=== PATIENT | female | born 1960 | race Caucasian/White ===

== ENCOUNTER 2020-12-11 08:06 | Outpatient (REF) | payer MEDICARE, MEDICAID, SELFPAY ==
[2020-12-11 09:31] LABS: Alanine Aminotransferase 35 U/L (0-31); Albumin Level 4.4 g/dL (3.5-5.0); Alkaline Phosphatase 104 U/L (39-117); Anion Gap 13 (12-20); Aspartate Amino Transferase 25 U/L (5-31); Bilirubin Total 0.5 mg/dL (0.0-1.0); Blood Urea Nitrogen 16 mg/dL (9-16); Calcium 9.2 mg/dL (8.4-10.2); Carbon Dioxide 28 mmol/L (22-29); Chloride 107 mmol/L (96-108); Estimated Glomerular Filt Rate > 60; Glucose Random 107 mg/dL (60-115); Potassium 4.9 mmol/L (3.3-5.1); Sodium 143 mmol/L (135-145); Total Protein 7.6 g/dL (6.5-8.0)
== END 2020-12-11 08:07 | disposition home or self-care (01) ==
LOC: HO.LAB 08:06
PROVIDERS: PCP Pediatrics; Visit Provider Student in an Organized Health Care Education/Training Program
DX: M19.049 Primary osteoarthritis, unspecified hand (principal)
CPT/HCPCS: 36415; 80053

== ENCOUNTER 2021-06-24 10:26 | Outpatient (REF) | payer MEDICARE, MEDICAID, SELFPAY ==
--- NOTE | ~2021-06-24 | XR_ITS ---
EXAMINATION: XR BILATERAL HAND CLINICAL INFORMATION: Primary osteoarthritis. COMPARISON: Bilateral hand 07/24/2017. TECHNIQUE: 3 views each hand. FINDINGS: Left hand: There is severe loss of PIP and DIP joint space with periarticular spurring. There are subchondral cystic changes proximal end mid phalanx 4th digit. The MCP joint space is maintained normal. No visible acute fracture or dislocation seen. The soft tissues are normal. Right hand: There is mild loss of PIP and DIP joint space both digits with periarticular spurring DIP joint 4th and 5th digits. There is a small loose body likely old injury, DIP joint 4th digit. Mild soft tissue swelling seen PIP joint 2nd through 4th digits. Normal. The carpometacarpal and radioulnar carpometacarpal joint space is maintained. XR/XR hand RT min 3V IMPRESSION: Severe degenerative changes PIP joints all digits and and minimal loss of the DIP joint space 2nd through 4th digit. No acute fracture, loose bodies or joint effusion seen. Degenerative osteoarthritic changes PIP and DIP joints all digits slightly worse along the PIP joint 5th digit. No visible acute fracture, dislocation or subluxation seen.
--- NOTE | ~2021-06-24 | XR_ITS ---
EXAMINATION: XR BILATERAL HAND CLINICAL INFORMATION: Primary osteoarthritis. COMPARISON: Bilateral hand 07/24/2017. TECHNIQUE: 3 views each hand. FINDINGS: Left hand: There is severe loss of PIP and DIP joint space with periarticular spurring. There are subchondral cystic changes proximal end mid phalanx 4th digit. The MCP joint space is maintained normal. No visible acute fracture or dislocation seen. The soft tissues are normal. Right hand: There is mild loss of PIP and DIP joint space both digits with periarticular spurring DIP joint 4th and 5th digits. There is a small loose body likely old injury, DIP joint 4th digit. Mild soft tissue swelling seen PIP joint 2nd through 4th digits. Normal. The carpometacarpal and radioulnar carpometacarpal joint space is maintained. XR/XR hand LT min 3V IMPRESSION: Severe degenerative changes PIP joints all digits and and minimal loss of the DIP joint space 2nd through 4th digit. No acute fracture, loose bodies or joint effusion seen. Degenerative osteoarthritic changes PIP and DIP joints all digits slightly worse along the PIP joint 5th digit. No visible acute fracture, dislocation or subluxation seen.
[2021-06-24 12:28] LABS: Alanine Aminotransferase 39 U/L (0-31); Albumin Level 4.3 g/dL (3.5-5.0); Alkaline Phosphatase 106 U/L (39-117); Anion Gap 10 (12-20); Aspartate Amino Transferase 25 U/L (5-31); Bilirubin Total 0.4 mg/dL (0.0-1.0); Blood Urea Nitrogen 14 mg/dL (9-16); Calcium 9.8 mg/dL (8.4-10.2); Carbon Dioxide 31 mmol/L (22-29); Chloride 106 mmol/L (96-108); Estimated Glomerular Filt Rate > 60; Glucose Random 96 mg/dL (60-115); Potassium 4.4 mmol/L (3.3-5.1); Sodium 143 mmol/L (135-145); Total Protein 7.8 g/dL (6.5-8.0)
== END 2021-06-24 10:27 | disposition home or self-care (01) ==
LOC: HO.LAB 10:26
PROVIDERS: PCP Internal Medicine; Visit Provider Nurse Practitioner Family
DX: M19.041 Primary osteoarthritis, right hand (principal); M19.042 Primary osteoarthritis, left hand
CPT/HCPCS: 36415; 73130; 80053; 99212

== ENCOUNTER → 2022-07-14 11:43 | Outpatient (BNVA) | payer MEDICARE, MEDICAID, SELFPAY | PROVIDERS: PCP Internal Medicine; Visit Provider Nurse Practitioner Family | DX: M19.049 Primary osteoarthritis, unspecified hand (principal); M54.16 Radiculopathy, lumbar region | CPT/HCPCS: 36415; 80053; 99212 ==

== ENCOUNTER 2022-07-14 12:54 | Outpatient (REF) | payer MEDICARE, MEDICAID, SELFPAY ==
[2022-07-14 14:07] LABS: Alanine Aminotransferase 45 U/L (0-31); Albumin Level 4.3 g/dL (3.5-5.0); Alkaline Phosphatase 113 U/L (39-117); Anion Gap 14 (12-20); Aspartate Amino Transferase 32 U/L (5-31); Bilirubin Total 0.4 mg/dL (0.0-1.0); Blood Urea Nitrogen 14 mg/dL (9-16); Calcium 9.6 mg/dL (8.4-10.2); Carbon Dioxide 28 mmol/L (22-29); Chloride 105 mmol/L (96-108); Estimated Glomerular Filt Rate > 60; Glucose Random 89 mg/dL (60-115); Potassium 3.8 mmol/L (3.3-5.1); Sodium 143 mmol/L (135-145); Total Protein 7.4 g/dL (6.5-8.0)
== END 2022-07-14 12:55 | disposition home or self-care (01) ==
LOC: HO.10HDL 12:54
PROVIDERS: Visit Provider Nurse Practitioner Family
DX: Z13.89 Encounter for screening for other disorder (principal)
CPT/HCPCS: 36415; 80053

== ENCOUNTER 2023-01-19 06:28 | Emergency (ER) | payer OTHER, SELFPAY ==
--- NOTE | ~2023-01-19 | CT_ITS ---
EXAMINATION: CT HEAD WITHOUT CONTRAST CLINICAL INFORMATION: Facial numbness COMPARISON: None available. TECHNIQUE: Contiguous axial imaging was performed from the skull base to vertex without intravenous administration of contrast. This CT examination was performed using dose optimization techniques as appropriate, variously including the following: *Automated exposure control *Adjustment of mA and/or kV according to patient size (this includes techniques or standardized protocols for targeted exams where dose is matched to indication/reason for exam; i.e. extremities or head) *Use of iterative reconstruction technique DLP: 552 mGy-cm FINDINGS: There is no evidence of an extra-axial collection. There is no evidence of intra or extra-axial hemorrhage. The ventricles and extra-axial CSF spaces are appropriate. Ross-white matter differentiation is normal. No mass, mass effect or infarct. Review of bone windows is normal. Paranasal sinuses, mastoid air cells and middle ears are clear. CT/CT head/brain wo IV con IMPRESSION: No acute intracranial pathology.
[2023-01-19 06:36] VITALS: BP 168/93; PULSE 87; RESP 18; TEMP 36.7; O2SAT 96; BMI 33.3
--- NOTE | 2023-01-19 07:20 | ED_ITS ---
HPI - General Adult General Chief complaint: General Medical Stated complaint: Facial numbness left side Time Seen by Provider: 01/19/23 06:36 Source: patient Mode of arrival: ambulatory Limitations: no limitations History of Present Illness HPI narrative: this is a 62-year-old female history of arthritis presenting to the emergency department with complaints left facial numbness for the past 5 days, patient rep orts this started suddenly, she reports she fell as acting like sensation to her left upper lip and then suddenly she felt like the left side of her face was numb particularly around her nose and lip region she tells me it feels like her mouth was numb to for dental procedure. No history of this in the past. No recent surgeries, vaccines, bug bites or insect bites, recent travel, trauma. Patient denies fevers, chills, chest pain, shortness of breath, visual disturbances, dizziness, headache, neck pain, nausea, vomiting, abdominal pain. Tells me she feels overall well. Related Data Home Medications Medication Instructions Recorded Confirmed ibuprofen 200 mg tablet (Advil) 200 mg PO Q6H PRN 07/14/22 07/14/22 Previous Rx's Medication Instructions Recorded acetaminophen 650 mg 650 mg PO Q8H PRN pain #90 tabs 12/21/20 tablet,extended release (Tylenol Arthritis Pain) aspirin 81 mg capsule 81 mg PO DAILY #30 caps 01/19/23 prednisone 20 mg tablet 60 mg PO DAILY 5 days #15 tabs 01/19/23 Allergies Allergy/AdvReac Type Severity Reaction Status Date / Time No Known Allergies Allergy Verified 01/19/23 06:46 [No Known Allergies*] Review of Systems Review of Systems: Constitutional : No Weight loss, No Fever, No Chills, No Fatigue, No Malaise ENT/Mouth : No sore throat, No Rhinorrhea Eyes: No Eye Pain, No Swelling, No Redness Cardiovascular : No Chest Pain, No SOB, No Dyspnea on Exertion, No Orthopnea, No Edema, No Palpitations Respiratory : No Cough, No Sputum, No Wheezing Gastrointestinal : No Nausea, No Vomiting, No Diarrhea, No Constipation, No abdominal Pain, No Hematochezia, No Melena Genitourinary : No Dysuria, No Urinary Frequency, No Hematuria, Musculoskeletal : No joint pain, No Myalgias, No Joint Swelling Skin : No Skin Lesions, No rash Neuro : No Weakness, + Numbness, No Dizziness, No Headache Psych : No Anxiety/Panic, No Depression All other systems reviewed and are negative Yes all other systems are reviewed and are negative [facility] Past Medical History Attestation statement: The following information was validated with the patient. Source: old records reviewed and nursing notes reviewed Medical History (Updated 01/19/23 @ 08:30 by MIGUELANGEL Aponte) Carpal tunnel syndrome Herniated disc, cervical Lumbar radiculopathy Osteoarthritis Surgical History Hx of tubal ligation Family History Family History Mother CAD (coronary artery disease) Father Brain cancer COPD (chronic obstructive pulmonary disease) Sister Brain cancer Brother Diabetes Social History Social History Household Members: Spouse Housing: Apartment Alcohol intake: never Patient Tobacco Use Status: Never used Tobacco Smoked in Last 30 Days: No Use of substances other than those prescribed or required for medical reasons: No Advance Directives: No Advance Directives Information Provided: Yes service: No Current occupational status: disabled Sexual orientation: Straight/Heterosexual Gender identity: Female Physical Exam ED Vital Signs: Vital Signs - 24 hr 01/19/23 06:36 01/19/23 07:44 Temperature 98.0 F 97.9 F Pulse Rate 87 75 Respiratory Rate 18 16 Blood Pressure 168/93 H 135/76 Pulse Oximetry 96 95 Oxygen Delivery Method Room Air Room Air BMI result Body Mass Index 33.3 vss Appearance: Alert.? Oriented X3.? No acute distress.? Head: Normocephalic, atraumatic, no step-offs or deformities Eyes: Pupils equal, round and reactive to light.? ENT: Pharynx normal.? Smile symmetric. Able to wrinkle forehead. Neck: Normal inspection.? Neck supple.? CVS: Normal heart rate and rhythm.? Pulses normal.? Respiratory: No respiratory distress.? Breath sounds normal.? Abdomen: Soft and nontender.? Skin: Skin warm and dry.? Normal skin color.? Normal skin turgor.? Extremities: No lower extremity edema.? No calf ttp. 5/5 strength to bilateral upper and lower extremities Back: No midline tenderness, no C-spine tenderness, full range of motion, no CVA tenderness bilaterally Neuro: Oriented X 3.? No motor deficit.? No sensory deficit. CN 2-12 intact . Normal cqiulp-eb-hgtg, udux-vl-rogf, steady tandem gait with normal coordinat ion. Normal hand continuous improvement coach equal bilateral. Negative Romberg and pronator drift. Normal speech. Scale NIH stroke scale 0 Course Reevaluation(s) Reevaluation #1: Patient's CBC unremarkable. Slightly elevated ESR . Chemistry unremarkable. CRP 0.[address] with no acute findings. Neuro remains nonfocal all. Symptom onset 5 days ago, at of stroke window. Discuss this case with my attending who recommends prednisone outpatient neurology follow-up nothing to be done about it in an inpatient setting. Patient feels well. Educated patient on diagnosis and treatment plan, answered all question, patient verbalizes understanding. At this time patient will be discharged home, advised to return with new or worsening symptoms. Educated on worrisome signs and symptoms and when to return. At this time I feel comfortable discharge home. Time: 08:55 Medical Decision Making Medical Decision Making [facility] Narrative: 0700 62-year-old female presents with left-sided facial numbness with past 5 days atraumatic. Physical exam benign. Negative NIH stroke scale. Concerns for possible impingement of facial nerve, trigeminal neuralgia versus lacunar stroke ( Patient not tPA candidate due to length of symptoms). history and physical exam not consistent with Guillain-Le Roy, [place] Calix syndrome, myasthenia gravis. No signs of posterior stroke. No signs of intracranial hemorrhage. will rule out electrolyte abnormalities Plan labs, inflammatory markers, tick panel, head CT Differential Diagnosis Differential Diagnoses: The differential diagnosis associated with the presentat ion includes Concerns for possible impingement of facial nerve, trigeminal neuralgia versus lacunar stroke ( Patient not tPA candidate due to length of symptoms). history and physical exam not consistent with Guillain-[place], [place] Calix syndrome, myasthenia gravis. No signs of posterior stroke. No signs of intracranial hemorrhage. will rule out electrolyte abnormalities Admission/Observation Consideration of admission/observation: Escalation of care including admission/observation considered possible Lab Data [facility] Lab Attestation statement: I reviewed the patient's lab results. 01/19/23 07:55 01/19/23 07:55 Labs: Lab Results 01/19/23 01/19/23 01/19/23 Range/Units 07:55 07:55 07:55 WBC 8.2 (4.8-10.8) X10*3/uL RBC 4.56 (4.20-5.50) X10*6/uL Hgb 13.5 (12.0-16.0) g/dl Hct 40.3 (37.0-47.0) % MCV 88.4 (80.0-98.0) fL MCH 29.6 (27.0-33.0) pg MCHC 33.5 (31.0-35.0) g/dl RDW 13.2 (11.0-16.0) % Plt Count 222 (160-400) X10*3/uL MPV 9.8 (9.4-12.3) fL Immature Gran % (Auto) 0.4 (0.0-0.4) % Neut % (Auto) 56.1 (45-73) % Lymph % (Auto) 32.8 (20-40) % [place] % (Auto) 8.5 (2-11) % Eos % (Auto) 2.0 (0-4) % Baso % (Auto) 0.2 (0-2) % Lymph # (Auto) 2.7 (1.2-4.9) X10*3/uL [place] # (Auto) 0.7 (0.1-1.2) X10*3/uL Eos # (Auto) 0.2 (0.0-0.4) X10*3/uL Baso # (Auto) 0.0 (0.0-0.2) X10*3/uL Abs Immat Gran (auto) 0.03 (0.00-0.03) X10*3/uL Absolute Neuts (auto) 4.6 (2.0-8.3) x10*3/uL Absolute Nucleated RBC 0.000 (0.0-0.012) X10*3/uL Nucleated RBC % (auto) 0.0 (0.0-0.2) /100WBC ESR 28 H (0-20) MM/HR Sodium 141 (135-145) mmol/L Potassium 3.6 (3.3-5.1) mmol/L Chloride 108 (96-108) mmol/L Carbon Dioxide 26 (22-29) mmol/L Anion Gap 11 L (12-20) BUN 12 (9-16) mg/dL Creatinine 0.72 (0.5-1.4) mg/dL Estim Creat Clear Calc 69.6 Estimated GFR > 60 Random Glucose 107 (60-115) mg/dL Calcium 9.0 D (8.4-10.2) mg/dL Magnesium 2.3 (1.6-2.6) mg/dL Total Bilirubin 0.5 (0.0-1.0) mg/dL AST 25 (5-31) U/L ALT 34 H (0-31) U/L Alkaline Phosphatase 81 (39-117) U/L C-Reactive Protein 0.92 H (< or = 0.50) mg/dL Total Protein 7.4 (6.5-8.0) g/dL Albumin 3.9 (3.5-5.0) g/dL Independent Interpretation I performed an independent interpretation of an: CT Scan Radiology Impression Discussion of test interpretation with radiology: I have reviewed the r adiologist's reading. Core Measures AMI core measures followed: Yes Measure exclusions: not indicated Discharge Plan Discharge Clinical Impression: Facial numbness Patient Disposition: Home, Self-Care Instructions: Paresthesia (ED) Additional Instructions: Take your medications as prescribed. If you were prescribed antibiotics to day, it is important that you take your medication to their entirety, do not skip any doses, do not finish them early. Follow-up with your primary care provider this week. Return to the emergency department with new or worsening symptoms. Such as fevers, chills, chest pain, shortness of breath, nausea, vomiting, dizziness, headache, vision changes, lethargy In case of emergency call 911 Follow up with your PCP you may need an MRI Prescriptions: New aspirin 81 mg capsule 81 mg PO DAILY Qty: 30 2RF prednisone 20 mg tablet 60 mg PO DAILY 5 Days Qty: 15 0RF No Action acetaminophen [Tylenol Arthritis Pain] 650 mg tablet extended release 650 mg PO Q8H PRN (Reason: pain) Qty: 90 5RF ibuprofen [Advil] 200 mg tablet 200 mg PO Q6H PRN Referrals: [facility] Neuro/Sleep [Provider Group] - 1 day Physician,Unknown J [Primary Care Provider] - 2 days Stand Alone Forms: Work/School Release
[2023-01-19 07:44] VITALS: BP 135/76; PULSE 75; RESP 16; TEMP 36.6; O2SAT 95
--- NOTE | 2023-01-19 07:45 | PC.NURSE ---
pt a&ox3. respirations even and unlabored. skin appropriate for ethnicity. pt reporting facial numbess that begins in the left sided nose that radiates into the left cheek. pt denies chest pain, n/v. pt normal sinus on tele.
[2023-01-19 08:01] LABS: MANUAL DIFF FLAG NO
[2023-01-19 08:03] LABS: Basophils Percent Auto 0.2 % (0-2); Eosinophils Absolute Auto 0.2 X10*3/uL (0.0-0.4); Hematocrit 40.3 % (37.0-47.0); Hemoglobin 13.5 g/dl (12.0-16.0); Imm Gran Abs Auto 0.03 X10*3/uL (0.00-0.03); Imm Gran Pct Auto 0.4 % (0.0-0.4); Lymphocytes Absolute Auto 2.7 X10*3/uL (1.2-4.9); Lymphocytes Percent Auto 32.8 % (20-40); Mean Corpuscular HGB Conc 33.5 g/dl (31.0-35.0); Mean Corpuscular Hemoglobin 29.6 pg (27.0-33.0); Mean Corpuscular Volume 88.4 fL (80.0-98.0); Mean Platelet Volume 9.8 fL (9.4-12.3); Monocytes Absolute Auto 0.7 X10*3/uL (0.1-1.2); Monocytes Percent Auto 8.5 % (2-11); Neutrophils Absolute Auto 4.6 x10*3/uL (2.0-8.3); Neutrophils Percent Auto 56.1 % (45-73); Platelet Count 222 X10*3/uL (160-400); Red Blood Count 4.56 X10*6/uL (4.20-5.50); Red Cell Distribution Width 13.2 % (11.0-16.0); White Blood Count 8.2 X10*3/uL (4.8-10.8)
[2023-01-19 08:18] LABS: Alanine Aminotransferase 34 U/L (0-31); Albumin Level 3.9 g/dL (3.5-5.0); Alkaline Phosphatase 81 U/L (39-117); Anion Gap 11 (12-20); Aspartate Amino Transferase 25 U/L (5-31); Bilirubin Total 0.5 mg/dL (0.0-1.0); Blood Urea Nitrogen 12 mg/dL (9-16); C Reactive Protein 0.92 mg/dL (< or = 0.50); Carbon Dioxide 26 mmol/L (22-29); Chloride 108 mmol/L (96-108); Creatinine Clr Calc Pharmacy 69.6; Estimated Glomerular Filt Rate > 60; Glucose Random 107 mg/dL (60-115); Magnesium 2.3 mg/dL (1.6-2.6); Potassium 3.6 mmol/L (3.3-5.1); Sodium 141 mmol/L (135-145); Total Protein 7.4 g/dL (6.5-8.0)
[2023-01-19 08:45] LABS: Erythrocyte Sedimentation Rate 28 MM/HR (0-20)
[2023-01-20 20:57] LABS: Lyme Abs Screen <0.90 index
[2023-01-22 00:18] LABS: A. Phagocytphilium DNA,RT-PCR NOT DETECTED (NOT DETECTED); Babesia Microti DNA, RT-PCR NOT DETECTED (NOT DETECTED); Borrelia Miyamotoi,DNA RT-PCR NOT DETECTED (NOT DETECTED); E.Chaffeensis DNA RT-PCR NOT DETECTED (NOT DETECTED); Lyme(Borrelia ssp)DNA RT-PCR NOT DETECTED (NOT DETECTED)
== END 2023-01-19 09:02 | disposition home or self-care (01) ==
PROVIDERS: Physician Assistant; Emergency Provider Emergency Medicine
DX: R20.0 Anesthesia of skin (principal); R51.9 Headache, unspecified; Z79.899 Other long term (current) drug therapy
CPT/HCPCS: 36415; 70450; 80053; 83735; 85025; 85652; 86140; 86617; 86618; 87798; 87801; 99284

== ENCOUNTER 2023-04-17 13:13 | Outpatient (AMB) | payer OTHER, SELFPAY ==
--- NOTE | 2023-04-17 13:18 | A.OFFPC_ITS ---
Vital Signs 04/17/23 13:21 Height 4 ft 9.5 in Weight 157 lb 8 oz BMI 33.5 BP 120/76 Blood Pressure Location Lt brachial Position Sitting Pulse 104 H Pulse Source Pulse Oximeter Pulse Oximetry (%) 97 Oxygen Delivery Method Room Air Intake Visit Reasons: New patient-discuss general health Intake Note: Patient is a new patient here to establish care for Complaint of numbness in face, Arthritis. Transferring care from [facility]. Medical records have not been requested and have not received. Was seen at [facility] for numbness of face recently. Entry Level Project Engineer Required: Yes Entry Level Project Engineer Language: Anatomy Professor Name: Vega ([id number]) Information Interpreted: non-clinical & clinical Sales Training Representative: Not Required per policy Accompanied by: Self / Same As Patient Allergies No Known Allergies [No Known Allergies*] Allergy (Verified 04/17/23 13:46) Medication List - Last Reconciled 04/17/23 by SHIRAZ Cary acetaminophen ER (Tylenol Arthritis Pain) 650 mg PO Q8H PRN aspirin 81 mg PO DAILY Tobacco use date assessed: 04/17/23 Fall risk assessment: No Falls in past year Last assessed Fall Risk: 04/17/23 Dental Screening Dental Screen Date: 04/17/23 Did you have a dental visit in the last 12 months?: No Did you have a dental problem in the last 6 months where you did not have access to dental care?: No Was dental information given to patient?: No HPI HPI Comments History of Present Illness Details 62-year-old Ethiopian-speaking female past medical history significant for osteoarthritis, lumbar radiculopathy and anxiety. Patient is a new patient who presents today to establish care. Review of the notes patient was seen in the emergency room in December for left-sided facial numbness, head CT unremarkable. Patient was discharged home with prednisone. Patient denies any acute concerns at this time. Previous patient: [facility]. [facility] Medical History Lumbar radiculopathy Osteoarthritis Herniated disc, cervical Carpal tunnel syndrome Surgical History Hx of tubal ligation Family History Mother CAD (coronary artery disease) Father Brain cancer COPD (chronic obstructive pulmonary disease) Sister Brain cancer Brother Diabetes Social History Household Members: Spouse Housing: Apartment Alcohol intake: never Patient Tobacco Use Status: Never used Tobacco e-Cigarette/Vaping Use: Never Used Second Hand Smoke Exposure: No service: No Current occupational status: disabled Sexual orientation: Straight/Heterosexual Gender identity: Female Cognitive needs: Yes (cane) Hearing needs: No Vision needs: Yes (glasses) Questionnaire PHQ-9 Over the last 2 weeks, how often have you been bothered by any of the following problems? 1. Little interest or pleasure in doing things: not at all 2. Feeling down, depressed, or hopeless: not at all 3. Trouble falling or staying asleep, or sleeping too much: not at all 4. Feeling tired or having little energy: not at all 5. Poor appetite or overeating: not at all 6. Feeling bad about yourself - or that you are a failure or have let yourself or your family down: not at all 7. Trouble concentrating on things, such as reading the newspaper or watching television: not at all 8. Moving or speaking so slowly that other people could have noticed. Or the opposite - being so fidgety or restless that you have been moving around a lot more than usual: not at all 9. Thoughts that you would be better off or of hurting yourself in some way: not at all Total score: 0 Depression Screening Interpretation: Negative Depression Screening Done: Yes 55183 - PHQ-9 Billing: Yes Source: Developed by Drs. Dell Paul, Joan Yeung, Rhys Hardy and colleagues, with an educational aileen from [employer]. Thrive Questionnaire Date Thrive assessed: 04/17/23 I am a: Patient What is your living situation today?: I have a steady place to live Within the past 12 months, did the food you bought not last and you didn't have the money to get more?: Never true Within the past 12 months, did you worry whether your food would run out before you got money to buy more?: Never true Do you have trouble paying for medicines?: No Do you have trouble getting transportation to medical appointments?: No Do you have trouble paying your heating and electricity bill?: No Do you have trouble taking care of your child, family member or friend?: No Do you have trouble with day-to-day activities such as bathing, preparing meals, shopping, managing finances, etc.?: No Are you currently unemployed and looking for a job?: No Are you interested in more education?: No Currently or been in a relationship where the following occur: no concerns reported AUDIT C Alcohol Use Questionnaire (AUDIT-C) 1. How often do you have a drink containing alcohol?: Never Total Score: 0 ROCCO-7 AMB Questionnaire ROCCO-7 Date ROCCO - 7 assessed: 04/17/23 Feeling nervous, anxious, or on edge: 1 = Several days Not being able to stop or control worryin = Not at all Worrying too much about different things: 0 = Not at all Trouble relaxin = Not at all Being so restless that it is hard to sit still: 0 = Not at all Becoming easily annoyed or irritable: 0 = Not at all Feeling afraid as if something awful might happen: 1 = Several days Total ROCCO-7 score (0-4 normal; 5-9 mild; 10-14 moderate; 15-21 severe): 2 Source: Developed by Drs. Dell Paul, Joan Yeung, Rhys Hardy and colleagues, with an educational aileen from [employer]. ROCCO-7 Assessment Billing ROCCO-7 Assessment Tool: ROCCO-7 Assessment 85165 Review of Systems Const Denies chills, Denies fatigue, Denies fever(s) and Denies poor appetite Eyes Denies no additional complaints ENT Reports Normal hearing present Card Denies chest pain, Denies syncope, Denies rapid heart rate and Denies dyspnea Resp Denies cough and Denies dyspnea GI Denies change in stool character, Denies constipation, Denies diarrhea, Denies nausea and Denies vomiting Denies urinary frequency, Denies dysuria and Denies urinary urgency Neuro Reports Normal hearing present, Denies confusion and Denies syncope Psych Denies confusion Endo Denies fatigue Physical exam (Primary Care) Vital Signs: Last Vital Signs Pulse 104 H 04/17/23 13:21 BP 120/76 04/17/23 13:21 Pulse Ox 97 04/17/23 13:21 Oxygen Delivery Method Room Air 04/17/23 13:21 BMI result Body Mass Index 33.5 Tobacco/Smoking Status: Tobacco use Status Tobacco use date assessed 04/17/23 04/17/23 13:35 Patient Tobacco Use Status Never used Tobacco 04/17/23 13:35 e-Cigarette/Vaping Use Never Used 04/17/23 13:35 PHQ-9: PHQ-9 Score PHQ-9: Total score 0 04/17/23 13:49 Depression Screening Interpretation: Negative Thrive Assessment: Date of Thrive Assessment Date Thrive assessed 04/17/23 04/17/23 13:35 Currently or been in a relationship where the following occur: no concerns reported Const General: No confusion Orientation/consciousness: No confusion HENMT Head: Yes normocephalic and Yes atraumatic Eyes Conjunctivae: conjunctivae normal Chest Chest palpation & inspection: normal inspection of the chest Resp Effort & Inspection: normal respiratory effort Auscultation: clear to auscultation bilaterally, no crackles, no rhonchi and no wheezes Cardio Rate: regular rate Rhythm: regular rhythm Heart sounds: S1 normal heart sound present and S2 normal heart sound present GI Inspection: Yes normal to inspection Neuro General: No confusion Cranial nerves: Yes Normal hearing present Extrem General: No edema Assessment and Plan Assessment & Plan (1) Anxiety: Code(s): F41.9 - Anxiety disorder, unspecified Plan: Offered referral to counseling, patient agreeable. (2) Lumbar radiculopathy: Code(s): M54.16 - Radiculopathy, lumbar region Plan: Can continue to take Tylenol as needed for pain. (3) Osteoarthritis, hand: Code(s): M19.049 - Primary osteoarthritis, unspecified hand Plan: Can continue to take Tylenol as needed for pain. Plan Follow-up in 3 months for physical exam. Orders: Orders Complete Blood Count Auto Diff Today Z13.0 - Encounter for screening for diseases of the blood and blood-forming organs and certain disorders involving the immune mechanism Comprehensive Rhine. Panel Fast Today Z13.1 - Encounter for screening for diabetes mellitus TSH reflex Free T4 Today Z13.29 - Encounter for screening for other suspected endocrine disorder Lipid Panel Today Z13.220 - Encounter for screening for lipoid disorders Referrals Counseling Referral F41.9 - Anxiety disorder, unspecified Coding Level of Care Code New Pt Level 3 (84453) Diagnoses Anxiety F41.9 Lumbar radiculopathy M54.16 Osteoarthritis, hand M19.049 Additional Codes ROCCO-7 Assessment Billing - ROCCO-7 Assessment Tool: ROCCO-7 Assessment 28488 ([id number])
[2023-04-17 13:21] VITALS: BP 120/76; PULSE 104; O2SAT 97; BMI 33.5
== END 2023-04-17 13:59 | disposition home or self-care (01) ==
PROVIDERS: Visit Provider Nurse Practitioner Family
DX: M19.049 Primary osteoarthritis, unspecified hand (principal); F41.9 Anxiety disorder, unspecified; M54.16 Radiculopathy, lumbar region
CPT/HCPCS: 99203

== ENCOUNTER 2023-04-18 06:58 | Outpatient (REF) | payer OTHER, SELFPAY ==
[2023-04-18 07:19] LABS: MANUAL DIFF FLAG NO
[2023-04-18 07:37] LABS: Basophils Percent Auto 0.3 % (0-2); Eosinophils Absolute Auto 0.2 X10*3/uL (0.0-0.4); Eosinophils Percent Auto 1.9 % (0-4); Hematocrit 42.3 % (37.0-47.0); Hemoglobin 13.7 g/dl (12.0-16.0); Imm Gran Abs Auto 0.04 X10*3/uL (0.00-0.03); Imm Gran Pct Auto 0.4 % (0.0-0.4); Lymphocytes Percent Auto 35.4 % (20-40); Mean Corpuscular HGB Conc 32.4 g/dl (31.0-35.0); Mean Corpuscular Hemoglobin 29.2 pg (27.0-33.0); Mean Corpuscular Volume 90.2 fL (80.0-98.0); Monocytes Absolute Auto 1.1 X10*3/uL (0.1-1.2); Monocytes Percent Auto 10.1 % (2-11); Neutrophils Absolute Auto 5.9 x10*3/uL (2.0-8.3); Neutrophils Percent Auto 51.9 % (45-73); Platelet Count 248 X10*3/uL (160-400); Red Blood Count 4.69 X10*6/uL (4.20-5.50); Red Cell Distribution Width 13.3 % (11.0-16.0); White Blood Count 11.3 X10*3/uL (4.8-10.8)
[2023-04-18 08:10] LABS: Alanine Aminotransferase 41 U/L (0-31); Albumin Level 4.3 g/dL (3.5-5.0); Alkaline Phosphatase 108 U/L (39-117); Anion Gap 14 (12-20); Aspartate Amino Transferase 31 U/L (5-31); Bilirubin Total 0.5 mg/dL (0.0-1.0); Blood Urea Nitrogen 14 mg/dL (9-16); Calcium 9.3 mg/dL (8.4-10.2); Carbon Dioxide 28 mmol/L (22-29); Chloride 108 mmol/L (96-108); Cholesterol 179 mg/dL (<200); Estimated Glomerular Filt Rate > 60; Glucose Fasting 129 mg/dL (60-99); HDL Cholesterol 38 mg/dL (>40); LDL Cholesterol Calculated 112 mg/dL (<100); Potassium 4.6 mmol/L (3.3-5.1); Sodium 145 mmol/L (135-145); Total Protein 7.6 g/dL (6.5-8.0); Triglycerides 146 mg/dL (<150)
[2023-04-18 08:27] LABS: TSH reflex Free T4 13.59 uIU/mL (0.32-4.0)
[2023-04-18 09:00] LABS: Free T4 (Free Thyroxine) 0.81 ng/dL (0.71-1.85)
== END 2023-04-18 06:59 | disposition home or self-care (01) ==
LOC: HO.LAB 06:58
PROVIDERS: PCP Nurse Practitioner Family; Visit Provider Nurse Practitioner Family
DX: Z13.0 Encounter for screening for diseases of the blood and blood-forming organs and certain disorders involving the immune mechanism (principal); Z13.29 Encounter for screening for other suspected endocrine disorder; Z13.220 Encounter for screening for lipoid disorders
CPT/HCPCS: 36415; 80053; 80061; 84439; 84443; 85025

== ENCOUNTER 2023-05-19 07:16 | Outpatient (REF) | payer OTHER, SELFPAY ==
[2023-05-19 07:53] LABS: Estimated Average Glucose 126 mg/dL
[2023-05-19 08:20] LABS: Alanine Aminotransferase 42 U/L (0-31); Albumin Level 4.2 g/dL (3.5-5.0); Alkaline Phosphatase 100 U/L (39-117); Anion Gap 15 (12-20); Aspartate Amino Transferase 27 U/L (5-31); Bilirubin Total 0.5 mg/dL (0.0-1.0); Blood Urea Nitrogen 13 mg/dL (9-16); Calcium 9.2 mg/dL (8.4-10.2); Carbon Dioxide 25 mmol/L (22-29); Chloride 106 mmol/L (96-108); Estimated Glomerular Filt Rate > 60; Glucose Fasting 118 mg/dL (60-99); Sodium 142 mmol/L (135-145); Total Protein 7.6 g/dL (6.5-8.0)
== END 2023-05-19 07:17 | disposition home or self-care (01) ==
LOC: HO.LAB 07:16
PROVIDERS: PCP Nurse Practitioner Family; Visit Provider Nurse Practitioner Family
DX: R73.01 Impaired fasting glucose (principal)
CPT/HCPCS: 36415; 80053; 83036

== ENCOUNTER 2023-08-17 09:49 | Outpatient (AMB) | payer OTHER, SELFPAY ==
--- NOTE | 2023-08-17 09:56 | A.OFFVIS_ITS ---
Intake Vital Signs 08/17/23 09:57 Height 4 ft 9.5 in Weight 155 lb 6.814 oz BMI 33.0 BP 138/66 Blood Pressure Location Lt brachial Position Sitting Pulse 101 H Pulse Source Pulse Oximeter Pulse Oximetry (%) 98 Oxygen Delivery Method Room Air Intake Visit Reasons: osteoarthritis Intake Note: Patient last seen by Faye on 07/14/22 presents today for follow up and test results. C/o pain and swelling in bl hands; low back pain. Dough Mixing Machine Operator Required: Yes Dough Mixing Machine Operator Language: Real Estate Consultant Name: [id number] Accompanied by: Self / Same As Patient Allergies No Known Allergies [No Known Allergies*] Allergy (Verified 08/17/23 10:04) Medication List - Last Reconciled 08/17/23 by Jacob Song MD acetaminophen ER (Tylenol Arthritis Pain) 650 mg PO Q8H PRN aspirin 81 mg PO DAILY HPI HPI Comments History of Present Illness Details 62-year-old female with bilateral hand o steoarthritis returns for follow-up. She states that she continues to have bilateral finger swelling and pain with doing any chores at home. She takes Tylenol about twice a week. She also rubs Vicks on her hands as needed. [facility] Medical History Lumbar radiculopathy Osteoarthritis Herniated disc, cervical Carpal tunnel syndrome Surgical History Hx of tubal ligation Family History Mother CAD (coronary artery disease) Father Brain cancer COPD (chronic obstructive pulmonary disease) Sister Brain cancer Brother Diabetes Social History Household Members: Spouse Housing: Apartment Alcohol intake: never Patient Tobacco Use Status: Never used Tobacco e-Cigarette/Vaping Use: Never Used Second Hand Smoke Exposure: No service: No Current occupational status: disabled Sexual orientation: Straight/Heterosexual Gender identity: Female Cognitive needs: Yes (cane) Hearing needs: No Vision needs: Yes (glasses) Review of Systems Musc Reports deformity, Reports arthralgias and Reports joint swelling Physical Exam Vital Signs: Last Vital Signs Pulse 101 H 08/17/23 09:57 BP 138/66 08/17/23 09:57 Pulse Ox 98 08/17/23 09:57 Oxygen Delivery Method Room Air 08/17/23 09:57 BMI result Body Mass Index 33.0 Const General: cooperative, healthy appearing and comfortable Nutritional Appearance: obese Orientation/consciousness: patient oriented x3 Limitations: no limitations HEENT Head: Yes normocephalic and Yes atraumatic Resp Effort & Inspection: normal respiratory effort and able to speak in complete sentences Neuro General: patient oriented x3 Extrem Other: Osteoarthritic changes of both hands with prominent Heberden's and Nick's nodes Multiple tender Heberden's and Nick's nodes Normal nailfold capillaroscopy Results Reviewed Results Reviewed: Laboratory Tests 06/24/2021 EXAMINATION: XR BILATERAL HAND CLINICAL INFORMATION: Primary osteoarthritis.? COMPARISON: Bilateral hand 07/24/2017. TECHNIQUE: 3 views each hand.? FINDINGS: Left hand: There is severe loss of PIP and DIP joint space with periarticular spurring. There are subchondral cystic changes proximal end mid phalanx 4th digit. The MCP joint space is maintained normal. No visible acute fracture or dislocation seen. The soft tissues are normal. Right hand: There is mild loss of PIP and DIP joint space both digits with periarticular spurring DIP joint 4th and 5th digits. There is a small loose body likely old injury, DIP joint 4th digit. Mild soft tissue swelling seen PIP joint 2nd through 4th digits. Normal. The carpometacarpal and radioulnar carpometacarpal joint space is maintained. XR/XR hand LT min 3V IMPRESSION: Severe degenerative changes PIP joints all digits and and minimal loss of the DIP joint space 2nd through 4th digit. No acute fracture, loose bodies or joint effusion seen. ? Degenerative osteoarthritic changes PIP and DIP joints all digits slightly worse along the PIP joint 5th digit. No visible acute fracture, dislocation or subluxation seen. Assessment & Plan Assessment & Plan (1) Osteoarthritis, hand: Code(s): M19.049 - Primary osteoarthritis, unspecified hand Qualifiers: Osteoarthritis type: primary Laterality: bilateral Qualified Code(s): M19.041 - Primary osteoarthritis, right hand; M19.042 - Primary osteoarthritis, left hand Plan: 62-year-old female with bilateral hand osteoarthritis returns for follow-up. Patient takes Tylenol once or twice a week as needed for hand pain and Vicks gel on her hands as needed. Advised patient that she can take 1 or 2 tabs of Tylenol daily as needed for her hand pain. Try using Voltaren gel. Consider buying a paraffin wax machine. Follow-up as needed Plan I spent 16 minutes reviewing patient's chart, evaluating patient, counseling patient and documenting in the chart Coding Level of Care Code Est Pt Level 3 (23314) Diagnoses Primary osteoarthritis of both hands M19.041; M19.042 Osteoarthritis type: primary Laterality: bilateral
[2023-08-17 09:57] VITALS: BP 138/66; PULSE 101; O2SAT 98; BMI 33.0
== END 2023-08-17 10:28 | disposition home or self-care (01) ==
PROVIDERS: PCP Nurse Practitioner Family; Visit Provider Student in an Organized Health Care Education/Training Program
DX: M19.041 Primary osteoarthritis, right hand (principal); M19.042 Primary osteoarthritis, left hand
CPT/HCPCS: 99213

== ENCOUNTER → 2023-08-17 09:49 | Outpatient (BNVA) | payer OTHER, SELFPAY | PROVIDERS: PCP Nurse Practitioner Family; Visit Provider Student in an Organized Health Care Education/Training Program | DX: M19.041 Primary osteoarthritis, right hand (principal); M19.042 Primary osteoarthritis, left hand | CPT/HCPCS: 99212 ==

== ENCOUNTER 2023-08-27 13:38 | Outpatient (AMB) | payer OTHER, SELFPAY ==
[2023-08-27 14:00] VITALS: BP 122/80; BMI 32.5
--- NOTE | 2023-08-27 14:00 | A.OFFPC_ITS ---
Vital Signs 08/27/23 14:00 Height 4 ft 9.5 in Weight 153 lb BMI 32.5 BP 122/80 Blood Pressure Location Lt brachial Position Sitting Intake Visit Reasons: PE Intake Note: Patient here for a physical exam Publicity Manager Required: No Accompanied by: Self / Same As Patient Allergies No Known Allergies [No Known Allergies*] Allergy (Verified 08/27/23 14:03) Medication List - Last Reconciled 08/27/23 by Melisa Sigala MD acetaminophen ER (Tylenol Arthritis Pain) 650 mg PO Q8H PRN Tobacco use date assessed: 08/27/23 Fall risk assessment: No Falls in past year Last assessed Fall Risk: 08/27/23 Dental Screening Dental Screen Date: 08/27/23 Did you have a dental visit in the last 12 months?: No Did you have a dental problem in the last 6 months where you did not have access to dental care?: No Was dental information given to patient?: Patient has dentist HPI HPI Comments History of Present Illness Details This is a 62-year-old female that comes for her physical exam. Mammogram was done over a year ago. Colonoscopy done at 53 years old was normal. Denies any chest pain shortness for breath. No acute complaints. [facility] Medical History Lumbar radiculopathy Osteoarthritis Herniated disc, cervical Carpal tunnel syndrome Surgical History Hx of tubal ligation Family History Mother CAD (coronary artery disease) Father COPD (chronic obstructive pulmonary disease) Sister Brain cancer Brother Diabetes Social History Household Members: Spouse Housing: Apartment Alcohol intake: never Patient Tobacco Use Status: Never used Tobacco e-Cigarette/Vaping Use: Never Used Second Hand Smoke Exposure: No service: No Current occupational status: disabled Sexual orientation: Straight/Heterosexual Gender identity: Female Cognitive needs: Yes (cane) Hearing needs: No Vision needs: Yes (glasses) Questionnaire PHQ-9 Over the last 2 weeks, how often have you been bothered by any of the following problems? 1. Little interest or pleasure in doing things: not at all 2. Feeling down, depressed, or hopeless: not at all 3. Trouble falling or staying asleep, or sleeping too much: not at all 4. Feeling tired or having little energy: not at all 5. Poor appetite or overeating: not at all 6. Feeling bad about yourself - or that you are a failure or have let yourself or your family down: not at all 7. Trouble concentrating on things, such as reading the newspaper or watching television: not at all 8. Moving or speaking so slowly that other people could have noticed. Or the opposite - being so fidgety or restless that you have been moving around a lot more than usual: not at all 9. Thoughts that you would be better off or of hurting yourself in some way: not at all Total score: 0 Depression Screening Interpretation: Negative Depression Screening Done: Yes 99367 - PHQ-9 Billing: Yes Source: Developed by Drs. Dell Paul, Joan Yeung, Rhys Hardy and colleagues, with an educational aileen from [employer]. Thrive Questionnaire Date Thrive assessed: 08/27/23 I am a: Patient What is your living situation today?: I have a steady place to live Within the past 12 months, did the food you bought not last and you didn't have the money to get more?: Never true Within the past 12 months, did you worry whether your food would run out before you got money to buy more?: Never true Do you have trouble paying for medicines?: No Do you have trouble getting transportation to medical appointments?: No Do you have trouble paying your heating and electricity bill?: No Do you have trouble taking care of your child, family member or friend?: No Do you have trouble with day-to-day activities such as bathing, preparing meals, shopping, managing finances, etc.?: No Are you currently unemployed and looking for a job?: No Are you interested in more education?: No Please select the resources that you would like help with: None Currently or been in a relationship where the following occur: no concerns reported THRIVE Score: 0 AUDIT C Alcohol Use Questionnaire (AUDIT-C) 1. How often do you have a drink containing alcohol?: Never Total Score: 0 Score Reviewed/Action Taken: No ROCCO-7 AMB Questionnaire ROCCO-7 Date ROCCO - 7 assessed: 08/27/23 Feeling nervous, anxious, or on edge: 1 = Several days Not being able to stop or control worryin = Not at all Worrying too much about different things: 0 = Not at all Trouble relaxin = Not at all Being so restless that it is hard to sit still: 0 = Not at all Becoming easily annoyed or irritable: 0 = Not at all Feeling afraid as if something awful might happen: 1 = Several days Total ROCCO-7 score (0-4 normal; 5-9 mild; 10-14 moderate; 15-21 severe): 2 Source: Developed by Drs. Dell Paul, Joan Yeung, Rhys Hardy and colleagues, with an educational aileen from [employer]. ROCCO-7 Assessment Billing ROCCO-7 Assessment Tool: ROCCO-7 Assessment 50181 Review of Systems Const All systems reviewed & are unremarkable except as noted in HPI and below Eyes Reports no additional complaints, Denies change in vision and Denies other visual disturbances Card Denies chest pain at rest, Denies chest pain with activity, Denies edema, Denies irregular heart rhythm, Denies claudication, Denies dyspnea, Denies dyspnea on exertion, Denies orthopnea, Denies paroxysmal nocturnal dyspnea and Denies slow heart rate Resp Denies cough, Denies dyspnea and Denies dyspnea on exertion GI Denies abdominal pain, Denies change in bowel habits, Denies excessive flatus, Denies nausea and Denies vomiting Denies urinary incontinence, Denies urinary hesitancy and Denies urinary urgency Physical exam (Primary Care) Vital Signs: Last Vital Signs BP 122/80 08/27/23 14:00 BMI result Body Mass Index 32.5 Tobacco/Smoking Status: Tobacco use Status Tobacco use date assessed 08/27/23 08/27/23 14:07 Patient Tobacco Use Status Never used Tobacco 08/27/23 14:07 e-Cigarette/Vaping Use Never Used 08/27/23 14:07 PHQ-9: PHQ-9 Score PHQ-9: Total score 0 08/27/23 14:32 Depression Screening Interpretation: Negative Thrive Assessment: Date of Thrive Assessment Date Thrive assessed 08/27/23 08/27/23 14:07 Currently or been in a relationship where the following occur: no concerns reported Const Orientation/consciousness: patient oriented x3 HENMT Head: Yes normal to inspection, Yes normocephalic and Yes atraumatic Ears: external ears normal Eyes General: appearance normal, both eyes and all related structures Eyelids: Yes eyelids normal Conjunctivae: conjunctivae normal Neck Neck: Yes normal visual inspection and Yes supple Resp Effort & Inspection: normal respiratory effort Auscultation: clear to auscultation bilaterally Cardio Jugular venous distension: no JVD Rate: regular rate Rhythm: regular rhythm Heart sounds: S1 normal heart sound present and S2 normal heart sound present GI Inspection: Yes normal to inspection Palpation (GI): Soft to palpation, nontender and Hernia present Auscultation: normal bowel sounds Skin General skin exam: no rashes or lesions noted Neuro General: patient oriented x3 and no focal motor deficits Extrem General: Yes full ROM Psych Appearance: grossly normal Assessment and Plan Assessment & Plan (1) Physical exam: Code(s): Z00.00 - Encounter for general adult medical examination without abnormal findings Plan: Repeat in a year. Orders: Orders MM screening mammo BI Today Z12.31 - Encounter for screening mammogram for malignant neoplasm of breast XR DEXA axial skeleton Today N95.9 - Unspecified menopausal and perimenopausal disorder Thyroid Stimulating Hormone Today R79.89 - Other specified abnormal findings of blood chemistry Free T4 (Free Thyroxine) Today R79.89 - Other specified abnormal findings of blood chemistry Thyroid Peroxidase Antibodies Today R79.89 - Other specified abnormal findings of blood chemistry US abdomen complete Today K43.9 - Ventral hernia without obstruction or gangrene Thyroglobulin Antibodies Today R79.89 - Other specified abnormal findings of blood chemistry Comprehensive Carr. Panel Fast Today Z00.00 - Encounter for general adult medical examination without abnormal findings Lipid Panel Today Z00.00 - Encounter for general adult medical examination without abnormal findings Referrals Neurology Referral R20.0 - Anesthesia of skin Coding Level of Care Code Est Pt Prev Care 40-64y(87023) Diagnoses Physical exam Z00.00 Additional Codes ROCCO-7 Assessment Billing - ROCCO-7 Assessment Tool: ROCCO-7 Assessment 32756 ([id number]) Time Spent (min) 33
== END 2023-08-27 14:44 | disposition home or self-care (01) ==
PROVIDERS: PCP Nurse Practitioner Family; Visit Provider Internal Medicine
DX: Z00.00 Encounter for general adult medical examination without abnormal findings (principal)
CPT/HCPCS: 99396

== ENCOUNTER 2023-09-01 06:44 | Outpatient (REF) | payer OTHER, SELFPAY ==
[2023-09-01 07:53] LABS: Alanine Aminotransferase 37 U/L (0-31); Albumin Level 4.1 g/dL (3.5-5.0); Alkaline Phosphatase 104 U/L (39-117); Anion Gap 11 (12-20); Aspartate Amino Transferase 25 U/L (5-31); Bilirubin Total 0.4 mg/dL (0.0-1.0); Blood Urea Nitrogen 12 mg/dL (9-16); Calcium 9.1 mg/dL (8.4-10.2); Carbon Dioxide 28 mmol/L (22-29); Chloride 110 mmol/L (96-108); Cholesterol 174 mg/dL (<200); Estimated Glomerular Filt Rate > 60; Glucose Fasting 103 mg/dL (60-99); HDL Cholesterol 40 mg/dL (>40); LDL Cholesterol Calculated 111 mg/dL (<100); Potassium 4.1 mmol/L (3.3-5.1); Sodium 145 mmol/L (135-145); Total Protein 7.5 g/dL (6.5-8.0); Triglycerides 117 mg/dL (<150)
[2023-09-01 08:12] LABS: Free T4 (Free Thyroxine) 0.72 ng/dL (0.71-1.85); Thyroid Stimulating Hormone 12.66 uIU/mL (0.32-4.0)
[2023-09-02 19:28] LABS: Thyroglobulin Antibodies 1 IU/mL (< or = 1); Thyroid Peroxidase Antibodies 5 IU/mL (<9)
== END 2023-09-01 06:45 | disposition home or self-care (01) ==
LOC: HO.LAB 06:44
PROVIDERS: PCP Internal Medicine; Visit Provider Internal Medicine
DX: Z00.00 Encounter for general adult medical examination without abnormal findings (principal); R79.89 Other specified abnormal findings of blood chemistry; Z13.29 Encounter for screening for other suspected endocrine disorder; Z13.220 Encounter for screening for lipoid disorders
CPT/HCPCS: 36415; 80053; 80061; 84439; 84443; 86376; 86800

== ENCOUNTER 2023-09-11 08:26 | Outpatient (REF) | payer OTHER, SELFPAY ==
--- NOTE | ~2023-09-11 | US_ITS ---
EXAMINATION: US ABDOMEN LIMITED CLINICAL INFORMATION: Ventral hernia without obstruction or gangrene. COMPARISON: None available. TECHNIQUE: Real-time imaging of the midline epigastric region. FINDINGS: There is a mild diastases rectus. The cutaneous, subcutaneous, muscular and fascial planes are otherwise unremarkable. No hernia defect is seen. There is no mass or fluid collection. No lymphadenopathy is noted. There is no foreign body. US/US abdomen limited IMPRESSION: A mild diastases rectus is noted. No focal hernia defect is seen. There is no abnormal mass or fluid collection.
== END 2023-09-11 08:27 | disposition home or self-care (01) ==
LOC: HO.US 08:26
PROVIDERS: PCP Internal Medicine; Visit Provider Internal Medicine
DX: K43.9 Ventral hernia without obstruction or gangrene (principal)
CPT/HCPCS: 76705

== ENCOUNTER 2023-09-22 07:47 | Outpatient (REF) | payer OTHER, SELFPAY ==
--- NOTE | ~2023-09-22 | MM_ITS ---
EXAMINATION: MM SCREENING DIGITAL BREAST TOMOSYNTHESIS, BILATERAL CLINICAL INFORMATION: Screening. Asymptomatic. COMPARISON: Mammography: This study is compared with prior outside mammograms dating back to 2017. TECHNIQUE: Digital breast tomosynthesis is performed in both the craniocaudal and mediolateral oblique views along with computer-aided detection (CAD). Synthesized 2D images are generated from the tomosynthesis. FINDINGS: There are scattered areas of fibroglandular density (ACR BI-RADS breast composition Category b). There are no significant masses, abnormal calcifications, or other abnormalities. There is a biopsy tissue marker adjacent to a partially calcified benign subcentimeter mass in the upper outer quadrant of the left breast. There are unchanged calcifications in each breast which are benign. MM/MM tomosynthesis screening BI IMPRESSION: No mammographic evidence of malignancy. ASSESSMENT: BI-RADS BI-RADS 2 - Benign Findings RECOMMENDATION: Routine annual mammography screening. 1 year F/U This examination should not preclude the clinical evaluation of a suspicious palpable abnormality. This patient's information was entered into a reminder system with a target due date for their next mammogram.
--- NOTE | ~2023-09-22 | MM_ITS ---
EXAMINATION: BONE DENSITOMETRY CLINICAL INDICATION: Menopause. COMPARISON: This is the patient's baseline examination. TECHNIQUE: Using a [employer] DXA System (software version: 13.1) manufactured by [employer], dual-energy x-ray absorptiometry was performed of the lumbar spine and left hip. The images are of good technical quality. Summary results are attached. FINDINGS: LEFT FEMUR, NECK: BMD 0.851 g/cm2, Z-score 0.0, T-score -1.3, osteopenia. LEFT FEMUR, TOTAL: BMD 0.952 g/cm2, Z-score 0.6, T-score -0.4, normal. AP SPINE L1-L4: BMD 1.162 g/cm2, Z-score 1.3, T-score -0.2, normal. IDENTIFIED RISK FACTORS: Menopause. HISTORY OF FRACTURE: None listed. MEDICATIONS: None listed. MM/XR DEXA axial skeleton IMPRESSION: 1. DIAGNOSIS: Osteopenia based on the lowest T-score value of -1.3 in the femoral neck applying World Health Organization criteria. 2. 10-YEAR FRACTURE RISK PREDICTION, FRAX: Major osteoporotic fracture (clinical spine, forearm, hip or shoulder) 4.5%. Hip fracture 0.4%. 3. Treatment Recommendations: NOF guidelines recommend consideration for treatment in postmenopausal women and men age 50 and older presenting with the following: -A hip or vertebral (clinical or morphometric) fracture. -T-score less than or equal to -2.5 at the femoral neck or spine after appropriate evaluation to exclude secondary causes. -Low bone mass at the hip or spine and a 10-year fracture probability by FRAX of greater than or equal to 3% for hip fracture or greater than or equal to 20% for major osteoporotic fracture based on the [place] adapted WHO algorithm. 4. Other Recommendations: All treatment decisions require clinical judgment and consideration of individual patient factors, including patient preferences, comorbidities, previous drug use, risk factors not captured in the FRAX model (e.g. frailty, falls, vitamin D deficiency, increased bone turnover, interval significant decline in bone density) and possible under or overestimation of fracture risk by FRAX. Additional medical evaluation for secondary cause of low bone mineral density may be appropriate. FUTURE SCAN RECOMMENDATION: People with diagnosed cases of osteoporosis or at high risk for fracture should have regular bone mineral density tests. For patients eligible for Medicare, routine testing is allowed once every 2 years. The testing frequency can be increased to one year for patients who have rapidly progressing disease, those who are receiving or discontinuing medical therapy to restore bone mass, or have additional risk factors.
== END 2023-09-22 07:48 | disposition home or self-care (01) ==
LOC: HO.MAMMO 07:47
PROVIDERS: PCP Internal Medicine; Visit Provider Internal Medicine
DX: Z12.31 Encounter for screening mammogram for malignant neoplasm of breast (principal); Z13.820 Encounter for screening for osteoporosis; Z78.0 Asymptomatic menopausal state
CPT/HCPCS: 77063; 77067; 77080

== ENCOUNTER → 2023-09-22 08:45 | Outpatient (BNV) | payer OTHER, SELFPAY | PROVIDERS: PCP Internal Medicine; Visit Provider Radiology Diagnostic Radiology | DX: Z12.31 Encounter for screening mammogram for malignant neoplasm of breast (principal) | CPT/HCPCS: 77063; 77067 ==

== ENCOUNTER 2024-08-15 08:56 | Outpatient (AMB) | payer OTHER, SELFPAY ==
[2024-08-15 09:04] VITALS: BP 144/88; PULSE 80; O2SAT 97; BMI 34.2
--- NOTE | 2024-08-15 09:04 | MHC.OFFVIS ---
Vital Signs 08/15/24 09:04 Height 4 ft 9.5 in Weight 161 lb BMI 34.2 BP 144/88 H Blood Pressure Location Rt brachial Position Sitting Pulse 80 Pulse Source Pulse Oximeter Pulse Oximetry (%) 97 Oxygen Delivery Method Room Air Intake Visit Reasons: INP- Anesthesia of skin. Intake Note: Patient referred in house By Dr. Villar for facial numbness. Allergies No Known Allergies [No Known Allergies*] Allergy (Verified 08/15/24 09:09) HPI Comments Details: 63y/o female comes for evaluation of facial numbness and paresthesias. ABout 18 mths ago ago she started feeling left midface tingling . she denies numbness, twitching, pain etc. She was seen by PCP and CT brain was normal . The symptoms were episodic and then became constant. she says she is used to the sensation and does not bother. she denies any recent dental work, no head injury. she denies any vertigo, diplopia, neck pain , headaches. she reports loud snoring, frequent gasping arousals and excessive daytime fatigue [facility] Medical History Hypersomnia Snoring Trigeminal anesthesia Numbness and tingling of left side of face Lumbar radiculopathy Osteoarthritis Herniated disc, cervical Carpal tunnel syndrome Surgical History Hx of tubal ligation Family History Mother CAD (coronary artery disease) Father COPD (chronic obstructive pulmonary disease) Sister Brain cancer Brother Diabetes Social History Household Members: Spouse Housing: Apartment Alcohol intake: never Patient Tobacco Use Status: Never used Tobacco e-Cigarette/Vaping Use: Never Used Second Hand Smoke Exposure: No service: No Current occupational status: disabled Sexual orientation: Straight/Heterosexual Gender identity: Female Cognitive needs: Yes (cane) Hearing needs: No Vision needs: Yes (glasses) Physical Exam Vital Signs: Last Vital Signs Pulse 80 08/15/24 09:04 BP 144/88 H 08/15/24 09:04 Pulse Ox 97 08/15/24 09:04 Oxygen Delivery Method Room Air 08/15/24 09:04 BMI result Body Mass Index 34.2 Const General: cooperative, healthy appearing and comfortable Nutritional Appearance: overweight Orientation/consciousness: patient oriented x3 Eyes Pupils: Equal, round and reactive pupils present Neuro General: patient oriented x3, gait normal, tone normal, moves all extremities and no focal motor deficits Cranial nerves: Yes Facial sensation intact/muscles of mastication intact, Yes Equal, round and reactive pupils present, Yes Bilaterally intact EOM present, Yes Nystagmus not present, Yes Normal facial strength present and Yes Midline tongue present Cognition (Neuro): normal cognition Gait exam (Neuro): Normal gait present Motor exam (neuro): 5/5 motor strength present throughout and Normal motor muscle tone present throughout Deep tendon reflexes (DTR's): Right triceps reflex intensity grade: 2+, Left triceps reflex intensity grade: 2+, Rt Biceps (C5, C6): 2+, Left biceps reflex intensity grade: 2+, Right brachioradialis reflex intensity grade: 2+, Left brachioradialis reflex intensity grade: 2+, Right patellar reflex intensity grade: 2+ and Left patellar reflex intensity grade: 2+ Coordination: [id number] test normal Assessment & Plan Assessment & Plan (1) Numbness and tingling of left side of face: Code(s): R20.0 - Anesthesia of skin; R20.2 - Paresthesia of skin Category: Medical (2) 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 - Other disorders of trigeminal nerve Category: Medical (3) Snoring: Code(s): R06.83 - Snoring Category: Medical (4) Hypersomnia: Code(s): G47.10 - Hypersomnia, unspecified Category: Medical Plan I will evaluate her with MRI brain with shabbir to r/o structural lesions Home sleep study to r/o sleep apnea Orders: Orders MR head/brain wo/w con Today G50.8 - Other disorders of trigeminal nerve, R20.0 - Anesthesia of skin, R20.2 - Paresthesia of skin RT home sleep study Today G47.10 - Hypersomnia, unspecified, R06.83 - Snoring Complete Blood Count Auto Diff Today G50.8 - Other disorders of trigeminal nerve Comprehensive Met. Panel Today G50.8 - Other disorders of trigeminal nerve Coding Level of Care Code New Pt Level 4 (78930) Diagnoses Numbness and tingling of left side of face R20.0; R20.2 Trigeminal anesthesia G50.8 Snoring R06.83 Hypersomnia G47.10
== END 2024-08-15 09:34 | disposition home or self-care (01) ==
LOC: HO.HSMS 08:56
PROVIDERS: PCP Internal Medicine; Visit Provider Psychiatry & Neurology Neurology
DX: R20.0 Anesthesia of skin (principal); R20.2 Paresthesia of skin; G50.8 Other disorders of trigeminal nerve; R06.83 Snoring; G47.10 Hypersomnia, unspecified
CPT/HCPCS: 99204

== ENCOUNTER 2024-08-16 06:52 | Outpatient (REF) | payer MEDICARE, SELFPAY ==
[2024-08-16 07:14] LABS: MANUAL DIFF FLAG NO
[2024-08-16 08:05] LABS: Basophils Percent Auto 0.5 % (0-2); Eosinophils Absolute Auto 0.2 X10*3/uL (0.0-0.4); Hemoglobin 13.5 g/dl (12.0-16.0); Imm Gran Abs Auto 0.02 X10*3/uL (0.00-0.03); Imm Gran Pct Auto 0.2 % (0.0-0.4); Lymphocytes Absolute Auto 2.8 X10*3/uL (1.2-4.9); Lymphocytes Percent Auto 31.9 % (20-40); Mean Corpuscular HGB Conc 33.8 g/dl (31.0-35.0); Mean Corpuscular Hemoglobin 29.9 pg (27.0-33.0); Mean Corpuscular Volume 88.5 fL (80.0-98.0); Mean Platelet Volume 10.6 fL (9.4-12.3); Monocytes Absolute Auto 0.8 X10*3/uL (0.1-1.2); Monocytes Percent Auto 8.8 % (2-11); Neutrophils Percent Auto 56.6 % (45-73); Platelet Count 233 X10*3/uL (160-400); Red Blood Count 4.52 X10*6/uL (4.20-5.50); Red Cell Distribution Width 13.2 % (11.0-16.0); White Blood Count 8.9 X10*3/uL (4.8-10.8)
[2024-08-16 08:46] LABS: Alanine Aminotransferase 37 U/L (0-31); Albumin Level 3.9 g/dL (3.5-5.0); Alkaline Phosphatase 96 U/L (39-117); Anion Gap 13 (12-20); Aspartate Amino Transferase 29 U/L (5-31); Bilirubin Total 0.5 mg/dL (0.0-1.0); Blood Urea Nitrogen 12 mg/dL (9-16); Calcium 8.4 mg/dL (8.4-10.2); Carbon Dioxide 23 mmol/L (22-29); Chloride 109 mmol/L (96-108); Estimated Glomerular Filt Rate > 60; Glucose Random 117 mg/dL (60-115); Potassium 3.6 mmol/L (3.3-5.1); Sodium 141 mmol/L (135-145); Total Protein 7.4 g/dL (6.5-8.0)
[2024-08-16 09:00] LABS: Free T4 (Free Thyroxine) 0.94 ng/dL (0.71-1.85)
[2024-08-16 09:05] LABS: Thyroid Stimulating Hormone 5.38 uIU/mL (0.32-4.0)
== END 2024-08-16 06:53 | disposition home or self-care (01) ==
LOC: HO.LAB 06:52
PROVIDERS: PCP Internal Medicine; Visit Provider Psychiatry & Neurology Neurology
DX: G50.8 Other disorders of trigeminal nerve (principal); R79.89 Other specified abnormal findings of blood chemistry
CPT/HCPCS: 36415; 80053; 84439; 84443; 85025

== ENCOUNTER → 2024-08-25 10:38 | Outpatient (BNV) | payer MEDICARE, SELFPAY | PROVIDERS: PCP Internal Medicine; Visit Provider Radiology Diagnostic Radiology | DX: J33.1 Polypoid sinus degeneration (principal); I67.89 Other cerebrovascular disease | CPT/HCPCS: 70553 ==

== ENCOUNTER 2024-08-25 10:40 | Outpatient (REF) | payer MEDICARE, SELFPAY ==
--- NOTE | ~2024-08-25 | MR_ITS ---
EXAMINATION: MR BRAIN WITHOUT AND WITH CONTRAST CLINICAL INFORMATION: Tingling in the left face. Concerning trigeminal neuralgia. COMPARISON: None available. TECHNIQUE: Multiplanar, multisequence MRI of the brain was obtained before and after the intravenous administration of 7.5 mL (Gadavist ) without reported immediate complications. FINDINGS: The Meckel's caves demonstrated no signal abnormality or enhancing lesion. The cistern segments and entry zones of the trigeminal nerves demonstrated no signal abnormality or enhancing lesion. No signal abnormality or enhancing lesion in the V2 segment of the trigeminal nerves/foramen rotundum. No enhancing lesion in the foramen ovale. No enhancing lesion in the orbital fissures. No enhancing mass in the intraconal or extraconal compartments of the orbits. No enhancing lesion or signal abnormality in the cochlear or vestibular components of the 8th nerves. Brainstem demonstrated no signal abnormality or enhancing lesion. 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 Anterior inferior cerebral arteries type I bilaterally. No restricted diffusion. No signal abnormality or enhancing lesion in the cavernous sinuses. Flow-void signal within the mean vessels is normal. Hyperintense T2 FLAIR signal in the deep periventricular white matter at the frontal horns of the lateral ventricles and to a lesser extent in the atrial. No acute intracranial hemorrhage, mass effect, midline shift, hydrocephalus or herniation. No signal abnormality or enhancing lesion in the facial nerves. Sellar/suprasellar region demonstrated no gross masses or signal abnormality. Craniocervical junction is intact and normal. Midline structures are normal. Polypoid mucosal thickening, paranasal sinuses involving mostly the left sphenoid sinus pterygoid recess and left maxillary sinus. Bilateral prominent, nonspecific cervical lymph nodes. No signal abnormality in the mastoid air cells. MR/MR head/brain wo/w con IMPRESSION: No signal abnormality or enhancing lesion, trigeminal cranial nerves. Polypoid paranasal sinus disease. Probable mild small vessel occlusive disease. Electronically signed by: Timoteo Robledo MD 08/25/2024 01:51 PM EDT
[2024-08-25] MEDS: gadobutroL 7.5 ML VIAL IVPUSH (12:06)
--- OUTSIDE RECORDS SUMMARY | 2024-08-25 14:00 | XMS_ITS | Encounter Summary ---
Author Organization [facility] Address [address] [place] [address] Care Team Providers Care Freezer Machine Operator Name Role Phone Glenny Ferreira DO Primary Care Pro vider Unavailable Lorraine Mcclelland MD Primary Care Provider Un available Encounter Details Date Type Department Care Team Description 05/09/2014 Release of Information Medical Records [address] [place] [id number] Abstract, Provider Social History Tobacco Use Types Packs/Day Years Used Date Smoking Tobacco: Never Smokeless Tobacco: Never Alcohol Use Standard Drinks/Week Comments No 0 (1 standard drink = 0.6 oz pur e alcohol) Sex Assigned at Date Recorded Not on file documented as of this encounter Plan of Treatment Not on file documented as of this encounter Visit Diagnoses Not on filedocumented in this encounter Care Teams Freezer Machine Operator Relationship Specialty Start Date End Date Glenny Ferreira DO PCP - General Internal Medicine 03/06/14 11/05/15 Lorraine Mcclelland MD PCP - General Internal Medicine 11/06/15 documented as of this encounter
--- OUTSIDE RECORDS SUMMARY | 2024-08-25 14:00 | XMS_ITS | Encounter Summary ---
Author Organization [facility] Address [address] [place] [address] Care Team Providers Care Child And Adolescent Therapist Name Role Phone Lorraine Mcclelland MD Primary Care Provider Un available Encounter Details Date Type Department Care Team Description 10/07/2019 Housing Assistant Property Manager Report Medical Records [address] [place] [id number] Abhay Dao MD Social History Tobacco Use Types Packs/Day Years [...] on filedocumented in this encounter Care Teams Child And Adolescent Therapist Relationship Specialty Start Date End Date Lorraine Mcclelland MD PCP - General Internal Medicine 11/06/15 documented as of this encounter
--- OUTSIDE RECORDS SUMMARY | 2024-08-25 14:00 | XMS_ITS | Encounter Summary ---
Author Organization [facility] Address [address] [place] [address] Care Team Providers Care Concrete Rubber Name Role Phone Lorraine Mcclelland MD Primary Care Provider Un available Encounter Details Date Type Department Care Team Description 01/24/2019 Hospital Medical Records [address] [place] [address] Gennaro Worthington MD [address] [place] [address] Social History Tobacco Use Types Packs/Day Years [...] on filedocumented in this encounter Care Teams Concrete Rubber Relationship Specialty Start Date End Date Lorraine Mcclelland MD PCP - General Internal Medicine 11/06/15 documented as of this encounter
--- OUTSIDE RECORDS SUMMARY | 2024-08-25 14:00 | XMS_ITS | Encounter Summary ---
Author Organization [facility] Address [address] [place] [address] Care Team Providers Care Curriculum Development Coordinator Name Role Phone Lorraine Mcclelland MD Primary Care Provider Un available Encounter Details Date Type Department Care Team Description 08/05/2016 Business Doc Medical Records [address] [place] [id number] Abstract, Provider Social History Tobacco Use Types [...] on filedocumented in this encounter Care Teams Curriculum Development Coordinator Relationship Specialty Start Date End Date Lorraine Mcclelland MD PCP - General Internal Medicine 11/06/15 documented as of this encounter
--- OUTSIDE RECORDS SUMMARY | 2024-08-25 14:00 | XMS_ITS | Encounter Summary ---
Author Organization [facility] Address [address] [place] [address] Care Team Providers Care General House Worker Name Role Phone Lorraine Mcclelland MD Primary Care Provider Un available Encounter Details Date Type Department Care Team Description 03/25/2017 Release of Information Medical Records [address] [place] [address] Abstract, Provider Social History Tobacco Use Types [...] on filedocumented in this encounter Care Teams General House Worker Relationship Specialty Start Date End Date Lorraine Mcclelland MD PCP - General Internal Medicine 11/06/15 documented as of this encounter
--- OUTSIDE RECORDS SUMMARY | 2024-08-25 14:00 | XMS_ITS | Encounter Summary ---
Author Organization [facility] Address [address] [place] [address] Care Team Providers Care Motor Grader Operator Name Role Phone Lorraine Mcclelland MD Primary Care Provider Un available Encounter Details Date Type Department Care Team Description 10/08/2016 Business Doc Medical Records [address] [place] [address] Abstract, Provider Social History Tobacco Use Types [...] on filedocumented in this encounter Care Teams Motor Grader Operator Relationship Specialty Start Date End Date Lorraine Mcclelland MD PCP - General Internal Medicine 11/06/15 documented as of this encounter
--- OUTSIDE RECORDS SUMMARY | 2024-08-25 14:00 | XMS_ITS | Encounter Summary ---
Author Organization [facility] Address [address] [place] [address] Care Team Providers Care Bridge Teacher Name Role Phone Lorraine Mcclelland MD Primary Care Provider Un available Encounter Details Date Type Department Care Team Description 2018 Orders Only OBGYN - [place] [address] [place], [place] [id number] Gennaro Worthington MD [address] [place] [address] [id number] PMB (postmenopausal bleeding) (Primary Dx) Social History Tobacco Use Types Packs/Day Years Used Date Smoking Tobacco: Never Smokeless Tobacco: Never Alcohol Use Standard Drinks/Week Comments No 0 (1 standard drink = 0.6 oz pur e alcohol) Sex Assigned at Date Recorded Not on file documented as of this encounter Plan of Treatment Not on file documented as of this encounter Visit Diagnoses Diagnosis PMB (postmenopausal bleeding)- Primary Postmenopausal bleeding documented in this encounter Care Teams Bridge Teacher Relationship Specialty Start Date End Date Lorraine Mcclelland MD PCP - General Internal Medicine 11/06/15 documented as of this encounter
--- OUTSIDE RECORDS SUMMARY | 2024-08-25 14:00 | XMS_ITS | Encounter Summary ---
Author Organization [facility] Address [address] [place] [address] Care Team Providers Care Cupola Liner Helper Name Role Phone Lorraine Mcclelland MD Primary Care Provider Un available Encounter Details Date Type Department Care Team Description 03/26/2017 Meeting Planner Report Medical Records [address] [place] [address] Miles Barnes MD Social History Tobacco Use Types Packs/Day [...] on filedocumented in this encounter Care Teams Cupola Liner Helper Relationship Specialty Start Date End Date Lorraine Mcclelland MD PCP - General Internal Medicine 11/06/15 documented as of this encounter
--- OUTSIDE RECORDS SUMMARY | 2024-08-25 14:00 | XMS_ITS | Encounter Summary ---
Author Organization [facility] Address [address] [place] [address] Care Team Providers Care Slicer Machine Operator Name Role Phone Glenny Ferreira DO Primary Care Pro vider Unavailable Lorraine Mcclelland MD Primary Care Provider Un available Encounter Details Date Type Department Care Team Description 05/09/2014 Business Doc Medical Records [address] [place] [id number] Abstract, Provider Social History Tobacco Use Types [...] on filedocumented in this encounter Care Teams Slicer Machine Operator Relationship Specialty Start Date End Date Glenny Ferreira DO PCP - General Internal Medicine 03/06/14 11/05/15 Lorraine Mcclelland MD PCP - General Internal Medicine 11/06/15 documented as of this encounter
--- OUTSIDE RECORDS SUMMARY | 2024-08-25 14:00 | XMS_ITS | Encounter Summary ---
Author Organization [facility] Address [address] [place] [address] Care Team Providers Care Human Resource Consultant Name Role Phone Lorraine Mcclelland MD Primary Care Provider Un available Encounter Details Date Type Department Care Team Description 01/28/2017 Wellness Visit Medical Records [address] [place] [address] Glenny Ferreira DO Social History Tobacco Use Types Packs/Day Years [...] on filedocumented in this encounter Care Teams Human Resource Consultant Relationship Specialty Start Date End Date Lorraine Mcclelland MD PCP - General Internal Medicine 11/06/15 documented as of this encounter
--- OUTSIDE RECORDS SUMMARY | 2024-08-25 14:00 | XMS_ITS | Clinical Summary ---
Author Organization [facility] Address [address] [place] [address] Care Team Providers Care Drafting Instructor Name Role Phone Lorraine Mcclelland MD Primary Care Provider Un available Medications Medication Sig Dispensed Refills Start Date End Date Status tramadol (ULTRAM) 50 MG tablet Take 1 Tab by mouth daily as needed for Pain. 28 Tab 0 10/07/2016 Active ibuprofen (ADVIL,MOTRIN) 600 MG tabletIndications:Pain in both hands,Other secondary osteoarthritis of both hands,Abnormal x-ray of extremity Take 1 Tab by mouth every 8 hours as needed for Pain. 90 Tab 1 05/26/2017 Active omeprazole (PRILOSEC) 20 MG capsule Take 1 Cap by mouth daily. 30 Cap 1 06/17/2017 Active acetaminophen (TYLENOL) 500 MG tablet Take 500 mg by mouth every 6 hours as needed. 0 Active Active Problems Problem Noted Date Gastroesophageal reflux disease without esophagitis 02/17/2019 Primary osteoarthritis of both hands 01/2017 Menopause 07/10/2015 Cervical herniated disc 05/05/2014 Lumbar back pain 05/05/2014 Immunizations Name Administration Dates Next Due Influenza (> 6 Months) 03/15/2014 Tdap 05/05/2014 Family History Medical History Relation Name Comments Diabetes Father [place] Mother from [place] at 65 Blindness Negative Hx CA Breast Negative Hx CA Colon Negative Hx CA Ovarian Negative Hx Cataract Negative Hx Glaucoma Negative Hx Macular Degeneration Negative Hx Strabismus Negative Hx Relation Name Status Comments Daughter Alive Father Mother Son Alive Social History Tobacco Use Types Packs/Day Years Used Date Smoking Tobacco: Never Smokeless Tobacco: Never Alcohol Use Standard Drinks/Week Comments No 0 (1 standard drink = 0.6 oz pur e alcohol) Sex Assigned at Date Recorded Not on file Last Filed Vital Signs Vital Sign Reading Time Taken Comments Blood Pressure 132/84 02/17/2019 10:49 AM EDT Pulse 90 02/17/2019 10:49 AM EDT Temperature 36.7 ??C (98.1 ??F) 02/17/2019 10:49 AM E DT Respiratory Rate 16 02/17/2019 10:49 AM EDT Oxygen Saturation 98% 11/08/2018 1:00 PM EDT Inhaled Oxygen Concentration - - Weight 71.4 kg (157 lb 6.4 oz) 02/17/2019 10:49 AM EDT Height 143.5 cm (4' 8.5 ) 02/17/2019 10:49 AM ED T Body Mass Index 34.67 02/17/2019 10:49 AM EDT Plan of Treatment Health Maintenance Due Date Last Done Comments Covid-19 Vaccine (#1) 05/21/1961 SHINGLES VACCINE (1 of 2) 2008 MAMMOGRAM 09/18/2019 09/17/2018, 04/06/2018, 08/17/2017, Additional history exists DEPRESSION SCREEN 11/09/2019 11/08/2018 (Co mpleted), 01/28/2017, 12/18/2016, Additional history exists CERVICAL CANCER SCREENING 11/08/2021 11/08/2018, BONE DENSITY SCREENING 11/20/2023 PNEUMOCOCCAL VACCINE (1 - PCV) 11/20/2023 INFLUENZA (#1) 2024 03/15/2014 CHOLESTEROL SCREENING 02/22/2024 02/21/2019 , 10/07/2016, 08/11/2014, Additional history exists DTAP/TDAP/TD (2 - Td or Tdap) 05/05/2024 05/05/2014 BMI CHECK/ADVISE 06/01/2024 02/17/2019, 03/2019 (Completed), 12/18/2016, Additional history exists COLON CANCER SCREENING 08/01/2024 08/01/2014 HEPATITIS C SCREENING Completed 05/07/2014 Care Teams Drafting Instructor Relationship Specialty Start Date End Date Lorraine Mcclelland MD PCP - General Internal Medicine 11/06/15
--- OUTSIDE RECORDS SUMMARY | 2024-08-25 14:00 | XMS_ITS | Encounter Summary ---
Author Organization [facility] Address [address] [place] [address] Care Team Providers Care Sales And In Home Delivery Specialist Name Role Phone Lorraine Mcclelland MD Primary Care Provider Un available Reason for Referral * EXTERNAL (Priority) - Authorized/Booked Specialty Diagnoses / Procedures Referred By Rickey kerr Referred To Contact ORTHOPEDICS / Orthopedic Diagnoses Bone lesion Pain of finger of left hand Abnormal MRI Procedures REFERRAL TO ORTHOPEDICS Christine Rossi DO [address] [place] [address] Orthopedics, [address] [place] [address] Referral ID Status Reason Start Date Expiration Date V isits Requested Visits Authorized SEE NOTE Authorized/B ooked 03/03/2017 06/04/2017 1 1 Encounter Details Date Type Department Care Team Description 03/03/2017 Telephone Rheumatology - [address] [address] Chirstine Rossi DO Social History Tobacco Use Types Packs/Day Years Used Date Smoking Tobacco: Never Smokeless Tobacco: Never Alcohol Use Standard Drinks/Week Comments No 0 (1 standard drink = 0.6 oz pur e alcohol) Sex Assigned at Date Recorded Not on file documented as of this encounter Miscellaneous Notes * Telephone Encounter - Madison Blackwell M.A. - 03/03/2017 11:41 AM EDT It was not this pt that was previously seen by Dr. Beyer, but does want a referral to Ortho. * Telephone Encounter - Christine Rossi DO - 03/03/2017 8:49 AM EDT Hi. Can we get her prior Ortho records from [facility] (Dr. Beyer?). Thanks. Will put new ortho referral for hand. Thanks. * Telephone Encounter - Christine Rossi DO - 03/03/2017 8:49 AM EDT ----- Message from Madison Blackwell M.A. sent at 03/02/2017 4:46 PM EDT ----- Pt called and informed. She would like a referral placed to see Ortho. documented in this encounter Plan of Treatment Not on file documented as of this encounter Visit Diagnoses Diagnosis Bone lesion- Primary Disorder of bone and cartilage, unspecified Pain of finger of left hand Pain in limb Abnormal MRI Other nonspecific (abnormal) findings on radiological and other examinations of body structure documented in this encounter Care Teams Sales And In Home Delivery Specialist Relationship Specialty Start Date End Date Lorraine Mcclelland MD PCP - General Internal Medicine 11/06/15 documented as of this encounter
--- OUTSIDE RECORDS SUMMARY | 2024-08-25 14:00 | XMS_ITS | Encounter Summary ---
Author Organization [facility] Address [address] [place] [address] Care Team Providers Care Applied Science And Technologies Dean Name Role Phone Glenny Ferreira DO Primary Care Pro vider Unavailable Lorraine Mcclelland MD Primary Care Provider Un available Encounter Details Date Type Department Care Team Description 07/11/2015 Business Doc Medical Records [address] [place] [address] Abstract, Provider Social History Tobacco Use Types [...] on filedocumented in this encounter Care Teams Applied Science And Technologies Dean Relationship Specialty Start Date End Date Glenny Ferreira DO PCP - General Internal Medicine 03/06/14 11/05/15 Lorraine Mcclelland MD PCP - General Internal Medicine 11/06/15 documented as of this encounter
--- OUTSIDE RECORDS SUMMARY | 2024-08-25 14:00 | XMS_ITS | Encounter Summary ---
Author Organization [facility] Address [address] [place] [address] Care Team Providers Care Blueprinting And Photocopy Supervisor Name Role Phone Glenny Ferreira DO Primary Care Pro vider Unavailable Lorraine Mcclelland MD Primary Care Provider Un available Encounter Details Date Type Department Care Team Description 05/12/2014 Business Doc Medical Records [address] [place] [id number] Abstract, Provider Social History Tobacco Use Types [...] on filedocumented in this encounter Care Teams Blueprinting And Photocopy Supervisor Relationship Specialty Start Date End Date Glenny Ferreira DO PCP - General Internal Medicine 03/06/14 11/05/15 Lorraine Mcclelland MD PCP - General Internal Medicine 11/06/15 documented as of this encounter
--- OUTSIDE RECORDS SUMMARY | 2024-08-25 14:00 | XMS_ITS | Encounter Summary ---
Author Organization [facility] Address [address] [place] [address] Care Team Providers Care Airplane Captain Name Role Phone Glenny Ferreira DO Primary Care Pro vider Unavailable Lorraine Mcclelland MD Primary Care Provider Un available Reason for Visit * Reason Onset Date Comments REFERRAL 01/24/2015 Encounter Details Date Type Department Care Team Description 01/24/2015 Telephone Physiatry - [address] [address] Delores Delgado MD [address] [place] [address] [place] [id number] REFERRAL Social History Tobacco Use Types Packs/Day Years Used Date Smoking Tobacco: Never Smokeless Tobacco: Never Alcohol Use Standard Drinks/Week Comments No 0 (1 standard drink = 0.6 oz pur e alcohol) Sex Assigned at Date Recorded Not on file documented as of this encounter Miscellaneous Notes * Telephone Encounter - Yvette Alcocer - 01/24/2015 11:39 AM EDT Pt was referred to Physiatry re: will request a referral to physiatry. Reason for referral: left wrist pain with ulnar paresthesias Priority: Next Available Payor: Not third-re[place] related Pt did not keep their scheduled appointment 01/17/[address] Taylor nor did they respond to multiple attempts to reschedule their visit--FYI documented in this encounter Plan of Treatment Not on file documented as of this encounter Visit Diagnoses Not on filedocumented in this encounter Care Teams Airplane Captain Relationship Specialty Start Date End Date Glenny Ferreira DO PCP - General Internal Medicine 03/06/14 11/05/15 Lorraine Mcclelland MD PCP - General Internal Medicine 11/06/15 documented as of this encounter
--- OUTSIDE RECORDS SUMMARY | 2024-08-25 14:00 | XMS_ITS | Encounter Summary ---
Author Organization [facility] Address [address] [place] [address] Care Team Providers Care Engine Lathe Set Up Operator Tool Name Role Phone Lorraine Mcclelland MD Primary Care Provider Un available Encounter Details Date Type Department Care Team Description 08/18/2017 Business Doc Medical Records [address] [place] [address] Abstract, Provider Social History Tobacco Use Types [...] on filedocumented in this encounter Care Teams Engine Lathe Set Up Operator Tool Relationship Specialty Start Date End Date Lorraine Mcclelland MD PCP - General Internal Medicine 11/06/15 documented as of this encounter
== END 2024-08-25 10:41 | disposition home or self-care (01) ==
LOC: HO.MRI 10:40
PROVIDERS: PCP Internal Medicine; Visit Provider Psychiatry & Neurology Neurology
DX: G50.8 Other disorders of trigeminal nerve (principal); R20.0 Anesthesia of skin; R20.2 Paresthesia of skin
CPT/HCPCS: 70553; A9585

== ENCOUNTER 2024-09-07 08:59 | Outpatient (AMB) | payer OTHER, SELFPAY ==
--- NOTE | 2024-09-07 09:24 | MHC.PC.OV ---
Vital Signs 09/07/24 09:25 Height 4 ft 9.5 in Weight 159 lb 12.8 oz BMI 34.0 BP 126/86 Blood Pressure Location Lt brachial Position Sitting Respiration 18 Pulse 92 Pulse Source Pulse Oximeter Temp 97.1 F Temp Source Temporal Artery Scan Pulse Oximetry (%) 99 Oxygen Delivery Method Room Air Intake Visit Reasons: Annual exam Electric Arc Furnace Operator Required: Yes Electric Arc Furnace Operator Language: Interactive Web Developer Name: Used tablet- Hay [id number] Accompanied by: Self / Same As Patient Allergies No Known Allergies [No Known Allergies*] Allergy (Verified 09/07/24 09:29) Medication List - Last Reconciled 09/07/24 by Melisa Sigala MD acetaminophen ER (Tylenol Arthritis Pain) 650 mg PO Q8H PRN calcium carbonate (Oyster Shell Calcium 500) 500 mg PO ONCE levothyroxine 25 mcg PO DAILY 90 days Tobacco use date assessed: 09/07/24 Fall risk assessment: No Falls in past year Last assessed Fall Risk: 09/07/24 Dental Screening Dental Screen Date: 09/07/24 Did you have a dental visit in the last 12 months?: No Did you have a dental problem in the last 6 months where you did not have access to dental care?: No Was dental information given to patient?: Yes HPI HPI Comments History of Present Illness Details The patient is a 63-year-old female presenting for a wellness and preventative care examination. She is here for a physical examination and is scheduled to receive her pneumonia vaccination today. Her medical history includes a bone densitometry conducted in 2023, which indicated osteopenia, necessitating follow-up in 2025. Last year's mammogram results were normal, and she has an upcoming mammogram scheduled for this month. The patient had an MRI of the brain due to persistent headaches that, though managed by urology, showed no significant findings. She had a negative fecal immunochemical test (FIT) for colon cancer screening last month. The patient's thyroid function tests revealed elevated TSH, leading to an adjustment in her levothyroxine dosage with plans to recheck in six weeks. She is classified as having Class 1 Obesity, as indicated by a BMI of 34, and weight loss discussion took place to address obesity. - Pneumonia vaccination scheduled. - Bone densitometry follow-up planned for 2025 after previous findings of osteopenia in 2023. - Upcoming mammogram scheduled; last mammogram was normal. - Thyroid function tests with elevated TSH and adjustment in levothyroxine dosage. - Recent negative result in FIT for colorectal cancer screening. - BMI management for Class 1 Obesity, with discussions on weight loss target. [facility] Medical History Hypersomnia Snoring Trigeminal anesthesia Numbness and tingling of left side of face Lumbar radiculopathy Osteoarthritis Herniated disc, cervical Carpal tunnel syndrome Surgical History Hx of tubal ligation Family History Mother CAD (coronary artery disease) Father COPD (chronic obstructive pulmonary disease) Sister Brain cancer Brother Diabetes Social History Household Members: Spouse Housing: Apartment Alcohol intake: never Patient Tobacco Use Status: Never used Tobacco e-Cigarette/Vaping Use: Never Used Second Hand Smoke Exposure: No service: No Current occupational status: disabled Sexual orientation: Straight/Heterosexual Gender identity: Female Cognitive needs: Yes (Cane) Hearing needs: No Vision needs: Yes (Glasses) Questionnaire PHQ-9 Over the last 2 weeks, how often have you been bothered by any of the following problems? 1. Little interest or pleasure in doing things: not at all 2. Feeling down, depressed, or hopeless: not at all 3. Trouble falling or staying asleep, or sleeping too much: not at all 4. Feeling tired or having little energy: not at all 5. Poor appetite or overeating: not at all 6. Feeling bad about yourself - or that you are a failure or have let yourself or your family down: not at all 7. Trouble concentrating on things, such as reading the newspaper or watching television: not at all 8. Moving or speaking so slowly that other people could have noticed. Or the opposite - being so fidgety or restless that you have been moving around a lot more than usual: not at all 9. Thoughts that you would be better off or of hurting yourself in some way: not at all Total score: 0 Depression Screening Interpretation: Negative Depression Screening Done: Yes 26703 - PHQ-9 Billing: Yes Source: Developed by Drs. Dell Paul, Joan Yeung, Rhys Hardy and colleagues, with an educational aileen from [employer]. Thrive Questionnaire Date Thrive assessed: 09/07/24 I am a: Patient What is your living situation today?: I choose not to answer this question Within the past 12 months, did the food you bought not last and you didn't have the money to get more?: I choose not to answer this question Within the past 12 months, did you worry whether your food would run out before you got money to buy more?: I choose not to answer this question Do you have trouble paying for medicines?: I choose not to answer this question Do you have trouble getting transportation to medical appointments?: I choose not to answer this question Do you have trouble paying your heating and electricity bill?: I choose not to answer this question Do you have trouble taking care of your child, family member or friend?: I choose not to answer this question Do you have trouble with day-to-day activities such as bathing, preparing meals, shopping, managing finances, etc.?: I choose not to answer this question Are you currently unemployed and looking for a job?: I choose not to answer this question Are you interested in more education?: I choose not to answer this question Please select the resources that you would like help with: None Currently or been in a relationship where the following occur: I choose not to answer THRIVE Score: 0 AUDIT C Alcohol Use Questionnaire (AUDIT-C) 1. How often do you have a drink containing alcohol?: Never Total Score: 0 Score Reviewed/Action Taken: No ROCCO-7 AMB Questionnaire ROCCO-7 Date ROCCO - 7 assessed: 09/07/24 Feeling nervous, anxious, or on edge: 0 = Not at all Not being able to stop or control worryin = Not at all Worrying too much about different things: 0 = Not at all Trouble relaxin = Not at all Being so restless that it is hard to sit still: 0 = Not at all Becoming easily annoyed or irritable: 0 = Not at all Feeling afraid as if something awful might happen: 0 = Not at all Total ROCCO-7 score (0-4 normal; 5-9 mild; 10-14 moderate; 15-21 severe): 0 Source: Developed by Drs. Dell Paul, Joan Yeung, Rhys Hardy and colleagues, with an educational aileen from [employer]. ROCCO-7 Assessment Billing ROCCO-7 Assessment Tool: ROCCO-7 Assessment 05447 Review of Systems Const All systems reviewed & are unremarkable except as noted in HPI and below Card Denies chest pain at rest, Denies chest pain with activity, Denies edema, Denies irregular heart rhythm, Denies claudication, Denies dyspnea, Denies dyspnea on exertion, Denies orthopnea, Denies paroxysmal nocturnal dyspnea and Denies slow heart rate Resp Denies cough, Denies dyspnea and Denies dyspnea on exertion GI Denies abdominal pain, Denies change in bowel habits, Denies excessive flatus, Denies nausea and Denies vomiting Denies urinary incontinence, Denies urinary hesitancy and Denies urinary urgency Neuro Denies lack of coordination Physical exam (Primary Care) Vital Signs: Last Vital Signs Temp 97.1 F 09/07/24 09:25 Pulse 92 09/07/24 09:25 Resp 18 09/07/24 09:25 BP 126/86 09/07/24 09:25 Pulse Ox 99 09/07/24 09:25 Oxygen Delivery Method Room Air 09/07/24 09:25 BMI result Body Mass Index 34.0 Tobacco/Smoking Status: Tobacco use Status Tobacco use date assessed 09/07/24 09/07/24 09:37 Patient Tobacco Use Status Never used Tobacco 09/07/24 09:37 e-Cigarette/Vaping Use Never Used 09/07/24 09:37 PHQ-9: PHQ-9 Score PHQ-9: Total score 0 09/07/24 12:39 Depression Screening Interpretation: Negative Thrive Assessment: Date of Thrive Assessment Date Thrive assessed 09/07/24 09/07/24 09:37 Currently or been in a relationship where the following occur: I choose not to answer HENPR Head: Yes normal to inspection, Yes normocephalic and Yes atraumatic Ears: external ears normal Eyes General: appearance normal, both eyes and all related structures Eyelids: Yes eyelids normal Conjunctivae: conjunctivae normal Neck Neck: Yes normal visual inspection and Yes supple Resp Effort & Inspection: normal respiratory effort Auscultation: clear to auscultation bilaterally Cardio Jugular venous distension: no JVD Rate: regular rate Rhythm: regular rhythm Heart sounds: S1 normal heart sound present and S2 normal heart sound present GI Inspection: Yes normal to inspection Palpation (GI): Soft to palpation and nontender Auscultation: normal bowel sounds Skin General skin exam: no rashes or lesions noted Neuro General: no focal motor deficits Extrem General: Yes full ROM Psych Appearance: grossly normal Immunizations pneumoc 20-samuel conj-dip cr(PF) 0.5 mL IM syringe Performing Provider: Melisa Sigala MD Performing Location: [facility] Administered by: JOSE Eden on 09/07/24 10:07 Dose Route Admin Location Dispensed Lot Number Expiration Date [place] Application Security Architect 0.5 mL IM Left Deltoid 0.5 mL [id number] 10/30/25 0026-2525-65 [employer] VIS Given Date VIS Provided VIS Publication Date 09/07/24 Single Vaccine 22 Eligibility Eligibility Date Funding Source Not [facility] Eligible 09/07/24 Private Coding Level of Care Code Est Pt Prev Care >65y(02499) Diagnoses Physical exam Z00.00 Additional Codes ROCCO-7 Assessment Billing - ROCCO-7 Assessment Tool: ROCCO-7 Assessment 00644 ([id number]) PHQ-9 - 10182 - PHQ-9 Billing: Yes ([id number]) Time Spent (min) 30 Assessment & Plan Assessment & Plan (1) Physical exam: Code(s): Z00.00 - Encounter for general adult medical examination without abnormal findings Category: Medical Plan Today, the patient received a pneumonia vaccination. I reviewed her osteopenia and confirmed a follow-up bone densitometry for 2025 based on the 2023 results. Her headaches, with an unremarkable MRI, will continue to be monitored under urology's care. I adjusted her levothyroxine dose in response to elevated TSH levels, with plans to reassess in six weeks. Discussions regarding weight management for her obesity were also addressed, targeting a reduction in BMI with lifestyle modifications. Patient was informed and verbally consented to the use of an ambient scribe for clinic note documentation during this visit. I discussed with the patient the importance of continuing with scheduled health maintenance interventions, including her upcoming mammogram and the 2025 bone densitometry following previous osteopenia findings. We reviewed her MRI results for persistent headaches and the plan for continued management under urology. For her thyroid function, I explained the need for dose adjustment of levothyroxine and the importance of follow-up testing in six weeks. I highlighted potential benefits of weight loss for managing her BMI-related issues, emphasizing dietary changes and increased physical activity as methods to achieve her weight goals. Patient understood and agreed with the management plan and follow-up actions. Orders: Orders AMB Hemoglobin A1c Today E11.9 - Type 2 diabetes mellitus without complications Thyroid Stimulating Hormone 6 Weeks E03.9 - Hypothyroidism, unspecified Pneumococcal 20 Immunization Today Z23 - Encounter for immunization Medications: New levothyroxine 50 mcg PO DAILY 90 days 90 tabs 1RF Changed From calcium carbonate (Oyster Shell Calcium 500) 500 mg PO BID 90 days 180 tabs 1RF To calcium carbonate (Oyster Shell Calcium 500) 500 mg PO ONCE Discontinued levothyroxine Discontinued Reason: Patient Completed Course 25 mcg PO DAILY 90 days 90 tabs 2RF R79.89 - Other specified abnormal findings of blood chemistry Patient Instructions: - Receive pneumonia vaccine today as scheduled. - Continue with scheduled mammogram and follow-ups. - Increase levothyroxine dosage as advised, and repeat thyroid function test in six weeks. - Focus on weight loss strategies to reduce BMI, incorporating healthier diet and regular exercise. - Report any new or worsening symptoms, or if headaches do not improve.
[2024-09-07 09:25] VITALS: BP 126/86; PULSE 92; RESP 18; TEMP 36.2; O2SAT 99; BMI 34.0
--- OUTSIDE RECORDS SUMMARY | 2024-09-07 09:30 | XMS_ITS | Encounter Summary ---
Author Organization [facility] Address [address] [place] [address] Care Team Providers Care Condominium Property Manager Name Role Phone Lorraine Mcclelland MD Primary Care Provider Un available Encounter Details Date Type Department Care Team Description 09/01/2018 Business Doc Medical Records [address] [place] [id number] Abstract, Provider Social History Tobacco Use Types [...] on filedocumented in this encounter Care Teams Condominium Property Manager Relationship Specialty Start Date End Date Lorraine Mcclelland MD PCP - General Internal Medicine 11/06/15 documented as of this encounter
--- OUTSIDE RECORDS SUMMARY | 2024-09-07 09:30 | XMS_ITS | Encounter Summary ---
Author Organization [facility] Address [address] [place] [address] Care Team Providers Care Spiral Spring Winder Name Role Phone Glenny Ferreira DO Primary Care Pro vider Unavailable Lorraine Mcclelland MD Primary Care Provider Un available Encounter Details Date Type Department Care Team Description 05/09/2014 Business Doc Medical Records [address] [place] [id number] Abstract, Provider Social History Tobacco Use Types [...] on filedocumented in this encounter Care Teams Spiral Spring Winder Relationship Specialty Start Date End Date Glenny Ferreira DO PCP - General Internal Medicine 03/06/14 11/05/15 Lorraine Mcclelland MD PCP - General Internal Medicine 11/06/15 documented as of this encounter
--- OUTSIDE RECORDS SUMMARY | 2024-09-07 09:30 | XMS_ITS | Encounter Summary ---
Author Organization [facility] Address [address] [place] [address] Care Team Providers Care Siding Installer Name Role Phone Glenny Ferreira DO Primary Care Pro vider Unavailable Lorraine Mcclelland MD Primary Care Provider Un available Encounter Details Date Type Department Care Team Description 05/09/2014 Release of Information Medical Records [address] [place] [address] Abstract, Provider Social History Tobacco Use Types [...] on filedocumented in this encounter Care Teams Siding Installer Relationship Specialty Start Date End Date Glenny Ferreira DO PCP - General Internal Medicine 03/06/14 11/05/15 Lorraine Mcclelland MD PCP - General Internal Medicine 11/06/15 documented as of this encounter
--- OUTSIDE RECORDS SUMMARY | 2024-09-07 09:30 | XMS_ITS | Encounter Summary ---
Author Organization [facility] Address [address] [place] [address] Care Team Providers Care Maintenance Pipefitter Name Role Phone Glenny Ferreira DO Primary Care Pro vider Unavailable Lorraine Mcclelland MD Primary Care Provider Un available Encounter Details Date Type Department Care Team Description 05/08/2014 Telephone Radiology - [address] [address] Jessica Luke PA-C Social History Tobacco Use Types Packs/Day Years [...] on filedocumented in this encounter Care Teams Maintenance Pipefitter Relationship Specialty Start Date End Date Glenny Ferreira DO PCP - General Internal Medicine 03/06/14 11/05/15 Lorraine Mcclelland MD PCP - General Internal Medicine 11/06/15 documented as of this encounter
--- OUTSIDE RECORDS SUMMARY | 2024-09-07 09:31 | XMS_ITS | Encounter Summary ---
Author Organization [facility] Address [address] [place] [address] Care Team Providers Care Plumbing And Heating Mechanic Name Role Phone Glenny Ferreira DO Primary Care Pro vider Unavailable Lorraine Mcclelland MD Primary Care Provider Un available Encounter Details Date Type Department Care Team Description 07/11/2015 Business Doc Medical Records [address] [place] [address] Abstract, Provider Social History Tobacco Use Types [...] on filedocumented in this encounter Care Teams Plumbing And Heating Mechanic Relationship Specialty Start Date End Date Glenny Ferreira DO PCP - General Internal Medicine 03/06/14 11/05/15 Lorraine Mcclelland MD PCP - General Internal Medicine 11/06/15 documented as of this encounter
--- OUTSIDE RECORDS SUMMARY | 2024-09-07 09:31 | XMS_ITS | Encounter Summary ---
Author Organization [facility] Address [address] [place] [address] Care Team Providers Care Screening Representative Name Role Phone Lorraine Mcclelland MD Primary Care Provider Un available Encounter Details Date Type Department Care Team Description 01/28/2019 [facility] Medical Records [address] [place] [address] Abstract, Provider Social History Tobacco Use Types [...] on filedocumented in this encounter Care Teams Screening Representative Relationship Specialty Start Date End Date Lorraine Mcclelland MD PCP - General Internal Medicine 11/06/15 documented as of this encounter
--- OUTSIDE RECORDS SUMMARY | 2024-09-07 09:31 | XMS_ITS | Encounter Summary ---
Author Organization [facility] Address [address] [place] [address] Care Team Providers Care Dry Goods Inspector Name Role Phone Lorraine Mcclelland MD Primary Care Provider Un available Encounter Details Date Type Department Care Team Description 2017 Manager Corporate Communications Report Medical Records [address] [place] [address] Vishal May Social History Tobacco Use Types Packs/Day Years [...] on filedocumented in this encounter Care Teams Dry Goods Inspector Relationship Specialty Start Date End Date Lorraine Mcclelland MD PCP - General Internal Medicine 11/06/15 documented as of this encounter
--- OUTSIDE RECORDS SUMMARY | 2024-09-07 09:31 | XMS_ITS | Encounter Summary ---
Author Organization [facility] Address [address] [place] [address] Care Team Providers Care Senior Web Engineer Name Role Phone Glenny Ferreira DO Primary Care Pro vider Unavailable Lorraine Mcclelland MD Primary Care Provider Un available Encounter Details Date Type Department Care Team Description 08/04/2014 Business Doc Medical Records [address] [place] [id number] Abstract, Provider Social History Tobacco Use Types [...] on filedocumented in this encounter Care Teams Senior Web Engineer Relationship Specialty Start Date End Date Glenny Ferreira DO PCP - General Internal Medicine 03/06/14 11/05/15 Lorraine Mcclelland MD PCP - General Internal Medicine 11/06/15 documented as of this encounter
--- OUTSIDE RECORDS SUMMARY | 2024-09-07 09:31 | XMS_ITS | Encounter Summary ---
Author Organization [facility] Address [address] [place] [address] Care Team Providers Care Restaurant Line Cook Name Role Phone Lorraine Mcclelland MD Primary Care Provider Un available Encounter Details Date Type Department Care Team Description 08/05/2016 Business Doc Medical Records [address] [place] [address] Abstract, Provider Social History Tobacco Use Types [...] on filedocumented in this encounter Care Teams Restaurant Line Cook Relationship Specialty Start Date End Date Lorraine Mcclelland MD PCP - General Internal Medicine 11/06/15 documented as of this encounter
--- OUTSIDE RECORDS SUMMARY | 2024-09-07 09:31 | XMS_ITS | Encounter Summary ---
Author Organization [facility] Address [address] [place] [address] Care Team Providers Care Driver'S License Examiner Name Role Phone Lorraine Mcclelland MD Primary Care Provider Un available Encounter Details Date Type Department Care Team Description 03/25/2017 Release of Information Medical Records [address] [place] [address] Abstract, Provider Social History Tobacco Use Types [...] on filedocumented in this encounter Care Teams Driver'S License Examiner Relationship Specialty Start Date End Date Lorraine Mcclelland MD PCP - General Internal Medicine 11/06/15 documented as of this encounter
--- OUTSIDE RECORDS SUMMARY | 2024-09-07 09:31 | XMS_ITS | Encounter Summary ---
Author Organization [facility] Address [address] [place] [address] Care Team Providers Care Client Sales And Service Officer Name Role Phone Glenny Ferreira DO Primary Care Pro vider Unavailable Lorraine Mcclelland MD Primary Care Provider Un available Encounter Details Date Type Department Care Team Description 03/19/2015 Transfer Records Medical Records [address] [place] [address] Abstract, Provider Social History Tobacco Use Types [...] on filedocumented in this encounter Care Teams Client Sales And Service Officer Relationship Specialty Start Date End Date Glenny Ferreira DO PCP - General Internal Medicine 03/06/14 11/05/15 Lorraine Mcclelland MD PCP - General Internal Medicine 11/06/15 documented as of this encounter
--- OUTSIDE RECORDS SUMMARY | 2024-09-07 09:31 | XMS_ITS | Encounter Summary ---
Author Organization [facility] Address [address] [place] [address] Care Team Providers Care Instrumentation Controls Engineer Name Role Phone Lorraine Mcclelland MD Primary Care Provider Un available Encounter Details Date Type Department Care Team Description 08/18/2017 Business Doc Medical Records [address] [place] [phone] Abstract, Provider Social History Tobacco Use Types [...] on filedocumented in this encounter Care Teams Instrumentation Controls Engineer Relationship Specialty Start Date End Date Lorraine Mcclelland MD PCP - General Internal Medicine 11/06/15 documented as of this encounter
--- OUTSIDE RECORDS SUMMARY | 2024-09-07 09:31 | XMS_ITS | Encounter Summary ---
Author Organization [facility] Address [address] [place] [address] Care Team Providers Care Equalizer Operator Name Role Phone Lorraine Mcclelland MD Primary Care Provider Un available Encounter Details Date Type Department Care Team Description 10/08/2016 Business Doc Medical Records [address] [place] [address] Abstract, Provider Social History Tobacco Use Types [...] on filedocumented in this encounter Care Teams Equalizer Operator Relationship Specialty Start Date End Date Lorraine Mcclelland MD PCP - General Internal Medicine 11/06/15 documented as of this encounter
== END 2024-09-07 10:09 | disposition home or self-care (01) ==
LOC: HO.HMCH 09:00
PROVIDERS: PCP Internal Medicine; Visit Provider Internal Medicine
DX: Z23 Encounter for immunization (principal); Z00.00 Encounter for general adult medical examination without abnormal findings

== ENCOUNTER → 2024-09-07 08:59 | Outpatient (BNVA) | payer OTHER, SELFPAY | PROVIDERS: PCP Internal Medicine; Visit Provider Internal Medicine | DX: Z00.00 Encounter for general adult medical examination without abnormal findings (principal); Z23 Encounter for immunization | CPT/HCPCS: 90471; 90677; 96127 ==

== ENCOUNTER 2024-09-27 08:35 | Outpatient (REF) | payer OTHER, SELFPAY | END 2024-09-27 08:36 | disposition home or self-care (01) | LOC: HO.MAMMO 08:35 | PROVIDERS: PCP Internal Medicine; Visit Provider Internal Medicine | DX: Z12.31 Encounter for screening mammogram for malignant neoplasm of breast (principal) | CPT/HCPCS: 77063; 77067 ==

== ENCOUNTER → 2024-09-27 09:00 | Outpatient (BNV) | payer OTHER, SELFPAY | PROVIDERS: PCP Internal Medicine; Visit Provider Internal Medicine | DX: Z12.31 Encounter for screening mammogram for malignant neoplasm of breast (principal) | CPT/HCPCS: 77063; 77067 ==

== ENCOUNTER → 2024-10-13 08:41 | Outpatient (REF) | payer OTHER, SELFPAY | LOC: HO.SL 08:41 | PROVIDERS: PCP Internal Medicine; Visit Provider Psychiatry & Neurology Neurology | DX: G47.10 Hypersomnia, unspecified (principal); R06.83 Snoring | CPT/HCPCS: 95806 ==

== ENCOUNTER → 2024-10-13 09:03 | Outpatient (BNV) | payer OTHER, SELFPAY | PROVIDERS: PCP Internal Medicine; Visit Provider Psychiatry & Neurology Neurology | DX: G47.33 Obstructive sleep apnea (adult) (pediatric) (principal) | CPT/HCPCS: 95806 ==

== ENCOUNTER 2024-10-25 12:34 | Outpatient (REF) | payer OTHER, SELFPAY ==
[2024-10-25 14:18] LABS: Thyroid Stimulating Hormone 2.88 uIU/mL (0.32-4.0)
== END 2024-10-25 12:35 | disposition home or self-care (01) ==
LOC: HO.LAB 12:34
PROVIDERS: PCP Internal Medicine; Visit Provider Internal Medicine
DX: E03.9 Hypothyroidism, unspecified (principal)
CPT/HCPCS: 36415; 84443

== ENCOUNTER 2024-11-11 10:27 | Outpatient (AMB) | payer OTHER, SELFPAY ==
[2024-11-11 10:38] VITALS: PULSE 81; O2SAT 98; BMI 34.0
--- NOTE | 2024-11-11 10:38 | MHC.OFFVIS ---
Vital Signs 11/11/24 10:38 Height 4 ft 9.5 in Weight 160 lb BMI 34.0 Pulse 81 Pulse Source Pulse Oximeter Pulse Oximetry (%) 98 Oxygen Delivery Method Room Air Intake Visit Reasons: 3m follow up Anesthesia of skin. Intake Note: Patient presents follow up Anesthesia. LABS/MRI/HST in chart( AHI-6, MAHSA- 85%. Trial APAP 5-20cm). Lining Caser Required: Yes Lining Caser Language: Prism Measurer Services: Lining Caser Present Lining Caser Name: Wyatt [id number] Information Interpreted: non-clinical & clinical Accompanied by: Self / Same As Patient Allergies No Known Allergies [No Known Allergies*] Allergy (Verified 11/11/24 10:44) HPI Comments Details: 63y/o female comes for evaluation of facial numbness and parasthesias. Kazakh speaking with blade groover on Ipad HST AHI 6 Oxygen Mahsa 86% [id number], she has mild sleep apnea, will start cpap [id number]. Labs reviwed with patient today today. MRI 07/2024 Polypoid mild small vessel sinus disease and Probable mild small vessel occlusive disease. About 2 years ago she started feeling left mid-face tingling, as if something is walking or crawling on her face. She denies numbness, twitching, pain etc. The symptoms are episodic and become constant, thoughd during daytime she forgets about it and rarely notices them. At night they re-occur and do not bother her. She denies any recent dental work, no head injury and falls. She denies any vertigo, diplopia, neck pain, and headaches. She goes to sleep at 10pm and wakes up at 3am. She can fall back asleep immediately, with zero bathroom breaks. She continues to snore snores with frequent gasping arousals and continues to have excessive daytime fatigue. [facility] Medical History Hypersomnia Snoring Trigeminal anesthesia Numbness and tingling of left side of face Lumbar radiculopathy Osteoarthritis Herniated disc, cervical Carpal tunnel syndrome Surgical History Hx of tubal ligation Family History Mother CAD (coronary artery disease) Father COPD (chronic obstructive pulmonary disease) Sister Brain cancer Brother Diabetes Social History Household Members: Spouse Housing: Apartment Alcohol intake: never Patient Tobacco Use Status: Never used Tobacco e-Cigarette/Vaping Use: Never Used Second Hand Smoke Exposure: No service: No Current occupational status: disabled Sexual orientation: Straight/Heterosexual Gender identity: Female Cognitive needs: Yes (Cane) Hearing needs: No Vision needs: Yes (Glasses) Physical Exam Vital Signs: Last Vital Signs Pulse 81 11/11/24 10:38 Pulse Ox 98 11/11/24 10:38 Oxygen Delivery Method Room Air 11/11/24 10:38 BMI result Body Mass Index 34.0 Const General: cooperative, healthy appearing and comfortable Nutritional Appearance: overweight Orientation/consciousness: patient oriented x3 Eyes Pupils: Equal, round and reactive pupils present Neuro Other: Facial asymmetry is noted on exam, consistent with her MRI, R.side higher than L. R. UE tremorL. Ext tremor on finger nose touch. General: patient oriented x3, gait normal, tone normal, moves all extremities and no focal motor deficits Cranial nerves: Yes Facial sensation intact/muscles of mastication intact, Yes Equal, round and reactive pupils present, Yes Bilaterally intact EOM present, Yes Nystagmus not present, Yes Normal facial strength present and Yes Midline tongue present Cognition (Neuro): normal cognition Gait exam (Neuro): Normal gait present Motor exam (neuro): 5/5 motor strength present throughout and Normal motor muscle tone present throughout Psych Appearance: grossly normal Results Reviewed Results Reviewed: MR/MR head/brain wo/w con IMPRESSION: No signal abnormality or enhancing lesion, trigeminal cranial nerves. Polypoid paranasal sinus disease. Probable mild small vessel occlusive disease. Assessment & Plan Assessment & Plan (1) ALICJA (obstructive sleep apnea): Code(s): G47.33 - Obstructive sleep apnea (adult) (pediatric) Category: Medical (2) Numbness and tingling of left side of face: Code(s): R20.0 - Anesthesia of skin; R20.2 - Paresthesia of skin Category: Medical (3) 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 - Other disorders of trigeminal nerve Category: Medical (4) Snoring: Code(s): R06.83 - Snoring Category: Medical Plan MRI is reviewed patient today. HST reviewed with patient, cpap order will be sent to sleep company to begin cpap therapy. Monitor BP, continue walking daily, staying active. Will f/u in 3 months for compliance. Patient Instructions: Sleep Hygiene provided: set a scheduled bedtime and wake time to help regulate the circadian rhythm and balance the release of pituitary hormones. Sleep in a dark room, temperatures below 68 degrees, and no devices n bed. Limit caffeinated products 6 hours prior to bed, and limit fluids 2-4 hours prior to bed. Gentle night yoga, diffusing essential oils, and playing soft music can be relaxing. Coding Level of Care Code Est Pt Level 4 (53828) Diagnoses ALICJA (obstructive sleep apnea) G47.33 Numbness and tingling of left side of face R20.0; R20.2 Trigeminal anesthesia G50.8 Snoring R06.83 Time Spent (min) 25
--- OUTSIDE RECORDS SUMMARY | 2024-11-11 11:28 | XMS_ITS | Encounter Summary ---
Author Organization [facility] Address [address] [place] [address] Care Team Providers Care Mosaic Floor Layer Name Role Phone Glenny Ferreira DO Primary Care Pro vider Unavailable Lorraine Mcclelland MD Primary Care Provider Un available Encounter Details Date Type Department Care Team Description 06/18/2014 Transfer Records Medical Records [address] [place] [address] Abstract, Provider Social History Tobacco Use Types [...] on filedocumented in this encounter Care Teams Mosaic Floor Layer Relationship Specialty Start Date End Date Glenny Ferreira DO PCP - General Internal Medicine 03/06/14 11/05/15 Lorraine Mcclelland MD PCP - General Internal Medicine 11/06/15 documented as of this encounter
== END 2024-11-11 11:35 | disposition home or self-care (01) ==
LOC: HO.HSMS 10:27
PROVIDERS: PCP Internal Medicine; Visit Provider Physician Assistant Medical
DX: G47.33 Obstructive sleep apnea (adult) (pediatric) (principal); R20.0 Anesthesia of skin; R20.2 Paresthesia of skin; G50.8 Other disorders of trigeminal nerve; R06.83 Snoring
CPT/HCPCS: 99214

== ENCOUNTER → 2024-11-11 10:27 | Outpatient (BNVA) | payer OTHER, SELFPAY | PROVIDERS: PCP Internal Medicine; Visit Provider Physician Assistant Medical | DX: R20.0 Anesthesia of skin (principal); R20.2 Paresthesia of skin; G50.8 Other disorders of trigeminal nerve; R06.83 Snoring; G47.10 Hypersomnia, unspecified ==

== ENCOUNTER 2025-03-13 09:40 | Outpatient (REF) | payer OTHER, SELFPAY ==
[2025-03-13 11:47] LABS: Thyroid Stimulating Hormone 2.92 uIU/mL (0.32-4.0)
== END 2025-03-13 09:41 | disposition home or self-care (01) ==
LOC: HO.LAB 09:40
PROVIDERS: PCP Internal Medicine; Visit Provider Internal Medicine
DX: E03.9 Hypothyroidism, unspecified (principal); E55.9 Vitamin D deficiency, unspecified; J34.9 Unspecified disorder of nose and nasal sinuses; M85.80 Other specified disorders of bone density and structure, unspecified site
CPT/HCPCS: 36415; 82306; 84443

== ENCOUNTER 2025-03-13 09:40 | Outpatient (AMB) | payer OTHER, SELFPAY ==
--- NOTE | 2025-03-13 09:47 | A.OFFPC_ITS ---
Vital Signs 03/13/25 09:48 Height 4 ft 9.5 in Weight 154 lb 4 oz BMI 32.8 BP 142/68 H Blood Pressure Location Lt brachial Position Sitting Pulse 86 Pulse Source Pulse Oximeter Temp 97.1 F Temp Source Temporal Artery Scan Pulse Oximetry (%) 98 Oxygen Delivery Method Room Air Intake Visit Reasons: thyroid Intake Note: Patient is here to follow up on Thyroid. Air Traffic Supervisor Required: Yes Air Traffic Supervisor Language: Kyrgyz Information Interpreted: non-clinical & clinical Vehicle Refinisher: Not Required per policy Accompanied by: Self / Same As Patient Allergies No Known Allergies (No Known Allergies*) Allergy (Verified 03/13/25 10:24) Medication List - Last Reconciled 03/13/25 by Melisa Sigala MD acetaminophen ER (Tylenol Arthritis Pain) 650 mg PO Q8H PRN calcium carbonate (Oyster Shell Calcium 500) 500 mg PO ONCE levothyroxine 50 mcg PO DAILY 90 days Tobacco use date assessed: 03/13/25 Fall risk assessment: No Falls in past year Last assessed Fall Risk: 03/13/25 Dental Screening Dental Screen Date: 09/07/24 HPI HPI Comments History of Present Illness Details The patient is a 64-year-old female presenting for a routine follow-up and management of chronic conditions. The patient has a history of osteopenia, diagnosed last year during a bone density scan. She is currently on calcium and vitamin D supplementation as a treatment measure. Additionally, the patient has paranasal sinus disease with nasal polyps, as identified in a recent MRI conducted by her neurologist. She reports no significant symptoms related to this condition, although she was advised to see an ENT specialist for further evaluation. The patient is on levothyroxine 50 mcg for thyroid management, with her last levels being controlled. She does not smoke or consume alcohol, and she takes Tylenol as needed for pain relief. [facility] Medical History (Updated 03/13/25 @ 11:12 by Melisa Sigala MD) Hypersomnia Snoring Trigeminal anesthesia Numbness and tingling of left side of face Lumbar radiculopathy Osteoarthritis Herniated disc, cervical Carpal tunnel syndrome Surgical History Hx of tubal ligation Family History Mother CAD (coronary artery disease) Father COPD (chronic obstructive pulmonary disease) Sister Brain cancer Brother Diabetes Social History Household Members: Spouse Housing: Apartment Alcohol intake: never Patient Tobacco Use Status: Never used Tobacco e-Cigarette/Vaping Use: Never Used Second Hand Smoke Exposure: No service: No Current occupational status: disabled Sexual orientation: Straight/Heterosexual Gender identity: Female Cognitive needs: Yes (Cane) Hearing needs: No Vision needs: Yes (Glasses) Questionnaire Thrive Questionnaire Date Thrive assessed: 09/07/24 I am a: Patient What is your living situation today?: I choose not to answer this question Within the past 12 months, did the food you bought not last and you didn't have the money to get more?: I choose not to answer this question Within the past 12 months, did you worry whether your food would run out before you got money to buy more?: I choose not to answer this question Do you have trouble paying for medicines?: I choose not to answer this question Do you have trouble getting transportation to medical appointments?: I choose not to answer this question Do you have trouble paying your heating and electricity bill?: I choose not to answer this question Do you have trouble taking care of your child, family member or friend?: I choose not to answer this question Do you have trouble with day-to-day activities such as bathing, preparing meals, shopping, managing finances, etc.?: I choose not to answer this question Are you currently unemployed and looking for a job?: I choose not to answer this question Are you interested in more education?: I choose not to answer this question Please select the resources that you would like help with: None Currently or been in a relationship where the following occur: I choose not to answer THRIVE Score: 0 ROCCO-7 AMB Questionnaire ROCCO-7 Date ROCCO - 7 assessed: 09/07/24 Source: Developed by Drs. Dell Paul, Joan Yeung, Rhys Hardy and colleagues, with an educational aileen from [employer] Review of Systems Const All systems reviewed & are unremarkable except as noted in HPI and below Card Denies chest pain at rest, Denies chest pain with activity, Denies edema, Denies irregular heart rhythm, Denies claudication, Denies dyspnea, Denies dyspnea on exertion, Denies orthopnea, Denies paroxysmal nocturnal dyspnea and Denies slow heart rate Resp Denies cough, Denies dyspnea and Denies dyspnea on exertion Physical exam (Primary Care) Vital Signs: Last Vital Signs Temp 97.1 F 03/13/25 09:48 Pulse 86 03/13/25 09:48 BP 142/68 H 03/13/25 09:48 Pulse Ox 98 03/13/25 09:48 Oxygen Delivery Method Room Air 03/13/25 09:48 BMI result Body Mass Index 32.8 BMI Assessment/Plan discussion: High BMI High, discussed plan: lifestyle, weight reduction, dietary and physical activity Tobacco/Smoking Status: Tobacco use Status Tobacco use date assessed 03/13/25 03/13/25 09:53 Patient Tobacco Use Status Never used Tobacco 03/13/25 09:53 e-Cigarette/Vaping Use Never Used 03/13/25 09:53 Thrive Assessment: Date of Thrive Assessment Date Thrive assessed 09/07/24 03/13/25 09:53 Currently or been in a relationship where the following occur: I choose not to answer Resp Effort & Inspection: normal respiratory effort Auscultation: clear to auscultation bilaterally Cardio Jugular venous distension: no JVD Rate: regular rate Rhythm: regular rhythm Heart sounds: S1 normal heart sound present and S2 normal heart sound present Extrem General: Yes full ROM Coding Level of Care Code Est Pt Level 3 (51704) Diagnoses Hypothyroidism E03.9 Sinus disease J34.9 Osteopenia M85.80 Assessment & Plan Assessment & Plan (1) Hypothyroidism: Code(s): E03.9 - Hypothyroidism, unspecified Category: Medical (2) Sinus disease: Comment: Polypoid paranasal sinus disease Code(s): J34.9 - Unspecified disorder of nose and nasal sinuses Category: Medical (3) Osteopenia: Code(s): M85.80 - Other specified disorders of bone density and structure, unspecified site Category: Medical Plan Plan Patient was informed and verbally consented to the use of an ambient scribe for clinic note documentation during this visit. 1. Other specified disorders of bone density and structure, unspecified site M85.80 The patient is advised to continue calcium and vitamin D supplementation to manage osteopenia. Regular monitoring of bone density is recommended to assess the progression of the condition. 2. Unspecified disorder of nose and nasal sinuses J34.9 The patient is advised to follow up with an ENT specialist for further evaluation and management of nasal polyps. A referral was made, and the patient is encouraged to schedule an appointment. 3. Hypothyroidism, unspecified E03.9 The patient is on levothyroxine 50 mcg, and thyroid function tests are to be repeated to ensure adequate control. The patient is advised to have her vitamin D levels checked as part of routine monitoring. Orders: Orders Thyroid Stimulating Hormone Today E03.9 - Hypothyroidism, unspecified Vitamin D 25-OH Total Today E55.9 - Vitamin D deficiency, unspecified
[2025-03-13 09:48] VITALS: BP 142/68; PULSE 86; TEMP 36.2; O2SAT 98; BMI 32.8
== END 2025-03-13 10:33 | disposition home or self-care (01) ==
LOC: HO.HMCH 09:41
PROVIDERS: PCP Internal Medicine; Visit Provider Internal Medicine
DX: E03.9 Hypothyroidism, unspecified (principal); J34.9 Unspecified disorder of nose and nasal sinuses; M85.80 Other specified disorders of bone density and structure, unspecified site